=== PATIENT | male | born 1960 | race Caucasian/White ===

== ENCOUNTER 2020-07-10 10:47 | Outpatient (REF) | payer BC, SELFPAY ==
[2020-07-10 13:33] LABS: MANUAL DIFF FLAG NO
[2020-07-10 13:45] LABS: Basophils Percent Auto 0.5 % (0-2); Eosinophils Absolute Auto 0.1 X10*3/uL (0.0-0.4); Eosinophils Percent Auto 1.5 % (0-4); Hematocrit 35.2 % (42-52); Hemoglobin 10.1 g/dl (14.0-18.0); Imm Gran Abs Auto 0.02 X10*3/uL (0.00-0.03); Imm Gran Pct Auto 0.3 % (0.0-0.4); Lymphocytes Absolute Auto 1.8 X10*3/uL (1.2-4.9); Lymphocytes Percent Auto 31.3 % (20-40); Mean Corpuscular HGB Conc 28.7 g/dl (31.0-36.0); Mean Corpuscular Hemoglobin 19.8 pg (27.0-33.0); Mean Platelet Volume 10.2 fL (9.4-12.4); Monocytes Absolute Auto 0.7 X10*3/uL (0.1-1.2); Monocytes Percent Auto 11.1 % (2-11); Neutrophils Absolute Auto 3.2 X10*3/uL (2.0-8.3); Neutrophils Percent Auto 55.3 % (45-73); Platelet Count 264 X10*3/uL (160-400); White Blood Count 5.9 X10*3/uL (4.8-10.8)
[2020-07-10 14:03] LABS: Alanine Aminotransferase 36 U/L (0-40); Albumin Level 4.3 g/dL (3.5-5.0); Alkaline Phosphatase 56 U/L (39-117); Anion Gap 12 (12-20); Aspartate Amino Transferase 22 U/L (5-37); Bilirubin Total 0.6 mg/dL (0.0-1.0); Blood Urea Nitrogen 22 mg/dL (9-16); Calcium 8.8 mg/dL (8.4-10.2); Carbon Dioxide 24 mmol/L (22-29); Chloride 107 mmol/L (96-108); Estimated Glomerular Filt Rate > 60; Glucose Random 111 mg/dL (60-115); Potassium 4.3 mmol/l (3.3-5.1); Sodium 139 mmol/L (135-145); Total Protein 7.4 g/dL (6.5-8.0)
[2020-07-10 14:17] LABS: B Type Natriuretic Peptide 564 pg/mL (<100); Troponin-I High Sensitivity 35.5 ng/L (<3.5-35.0)
[2020-07-10 14:26] LABS: Free T4 (Free Thyroxine) 0.98 ng/dL (0.71-1.85); Thyroid Stimulating Hormone 1.85 uIU/mL (0.32-4.0)
== END 2020-07-10 10:48 | disposition home or self-care (01) ==
LOC: HO.10HDL 10:47
PROVIDERS: PCP Internal Medicine; Visit Provider Internal Medicine
DX: I25.10 Atherosclerotic heart disease of native coronary artery without angina pectoris (principal); I42.9 Cardiomyopathy, unspecified
CPT/HCPCS: 36415; 80053; 83880; 84439; 84443; 84484; 85025

== ENCOUNTER 2020-08-15 09:48 | Day surgery (SDC) | payer BC, SELFPAY ==
[2020-08-09 14:56] VITALS: BMI 30.1
--- NOTE | 2020-08-09 15:14 | P.CONAN_ITS ---
Documented by User: Talia Multani 08/09/20 15:18 HPI - Anesthesia Eval Consult details Narrative: 60yo M for Upper Endoscopy [facility] Past Medical History Medical History (Updated 08/15/20 @ 10:47 by Sona Chamorro) Anemia Arrhythmia CAD (coronary artery disease) Elevated cholesterol GERD (gastroesophageal reflux disease) Hx of cardiomyopathy On anticoagulant therapy On beta angela at home Orthostatic hypotension Surgical History Surgical History H/O colonoscopy Hx of cardiac catheterization Social History Social History Alcohol intake: current Alcohol intake frequency: a few times a month Smoking Status: Former smoker Tobacco Type: Cigarette Smoked in Last 30 Days: No Smoking Quit Date: 1990 Use of substances other than those prescribed or required for medical reasons: No Advance Directives Information Provided: No Recently lost weight without trying: No Meds Allergies Allergy/AdvReac Type Severity Reaction Status Date / Time No Known Allergies Allergy Verified 08/15/20 10:20 [No Known Allergies*] Home Medications Medication Instructions Recorded Confirmed Type apixaban [Eliquis] 1 tab PO BID 08/09/20 08/09/20 History aspirin 1 tab PO DAILY 08/09/20 08/09/20 History atorvastatin 1 tab PO DAILY 08/09/20 08/09/20 History ferrous sulfate [iron] 325 mg PO DAILY 08/09/20 08/09/20 History lisinopril 1 tab PO DAILY 08/09/20 08/09/20 History metoprolol succinate 12.5 mg PO QPM 08/09/20 08/09/20 History metoprolol succinate 25 mg PO QAM 08/09/20 08/09/20 History Exam Exam Date and Time: August 09, 2020 1514 Height,Weight and Vital Signs: Height 5 ft 10 in Weight 95.254 kg Pertinent Lab Results Pertinent Lab Results: Laboratory Tests 07/10/20 07/10/20 10:50 10:50 WBC 5.9 Hgb 10.1 L Hct 35.2 L Plt Count 264 Sodium 139 Potassium 4.3 Chloride 107 Carbon Dioxide 24 BUN 22 H Creatinine 1.19 Narrative Narrative: ECHO 10/2019: EF 35-40%, infolat wall and mid inferior segment are akinetic, mild calc of aortic valve Cardiac cath 07/2019: 50% stenosis in proximal LAD; 80% stenosis in ostial 1st diagonal. IFR across LAD no hemodynamically significant. Plan for med management. Assessment and Plan Assessment Anesthesia Assessment: Chart Reviewed Documented by User: Sona Chamorro 08/15/20 10:47 [facility] Past Medical History Medical History (Updated 08/15/20 @ 10:47 by Sona Chamorro) Anemia Arrhythmia CAD (coronary artery disease) Elevated cholesterol GERD (gastroesophageal reflux disease) Hx of cardiomyopathy On anticoagulant therapy On beta angela at home Orthostatic hypotension Family History Family history of problems with anesthesia: No Surgical History Surgical History H/O colonoscopy Hx of cardiac catheterization History of Problems with Anesthesia: No Social History Social History Alcohol intake: current Alcohol intake frequency: a few times a month Smoking Status: Former smoker Tobacco Type: Cigarette Smoked in Last 30 Days: No Smoking Quit Date: 1990 Use of substances other than those prescribed or required for medical reasons: No Advance Directives Information Provided: No Recently lost weight without trying: No Meds Allergies Allergy/AdvReac Type Severity Reaction Status Date / Time No Known Allergies Allergy Verified 08/15/20 10:20 [No Known Allergies*] Home Medications Medication Instructions Recorded Confirmed Type apixaban [Eliquis] 1 tab PO BID 08/09/20 08/09/20 History aspirin 1 tab PO DAILY 08/09/20 08/09/20 History atorvastatin 1 tab PO DAILY 08/09/20 08/09/20 History ferrous sulfate [iron] 325 mg PO DAILY 08/09/20 08/09/20 History lisinopril 1 tab PO DAILY 08/09/20 08/09/20 History metoprolol succinate 12.5 mg PO QPM 08/09/20 08/09/20 History metoprolol succinate 25 mg PO QAM 08/09/20 08/09/20 History Exam Height,Weight and Vital Signs: Vital Signs Temp Pulse Resp BP Pulse Ox 08/15/20 10:21 96.9 F 48 L 16 118/75 99 Airway Mallampati Class: II TM Dist: >3cm Neck ROM: Full Loose/Missing/Broken Teeth: No (Several caps) Heart: RRR Lungs: CTAB Assessment and Plan Assessment Anesthesia Assessment: Anesthesia Plan Discussed and Chart Reviewed Final Anesthetic Review NPO: Yes ASA Class: III Final Preanesthetic Review: No Changes in Pt Med Stat, Meds/Allgs Chart Reviewed, Consent Obtained/Reviewed and Anes Risks/Benef Reviewed Patient Risk: Intermediate Procedure Risk: Low Assessment/Block/Sedation in SS: Assess/Block/Sedation-SS Anesthetic Plan Anesthetic Plan: MAC: Disposition: Standard PACU
[2020-08-15 10:21] VITALS: BP 118/75; PULSE 48; RESP 16; TEMP 36.1; O2SAT 99
--- NOTE | 2020-08-15 10:56 | MHC.SHP ---
Pre-Procedural Eval Section A The patient is an INPATIENT: No Changes since office visit: Yes Cold of Flu in the past 2 weeks, Yes New Medical Problems, Yes Changes in Medication and Yes Patient answered all questions The History & Physical has been completed within 30 days and I have reviewed it.: Yes Section B Chief Complaint: reflux disease,iron def Allergies: Allergies Allergy/AdvReac Type Severity Reaction Status Date / Time No Known Allergies Allergy Verified 08/15/20 10:20 [No Known Allergies*] Plan I have reviewed the history and physical and performed a pertinent physical examination on my patient. No changes have occurred unless specified.
[2020-08-15 11:12] VITALS: BP 105/58; PULSE 55; RESP 16; TEMP 36.2; O2SAT 98
--- NOTE | 2020-08-15 11:20 | PM.OP ---
Brief Operative Note Date of Service: 08/15/20 Pre-op diagnosis: gerd, iron def anemia Post-op diagnosis: same (gastritis) Procedure: egd Surgeon: Valentin Styles Anesthesia: MAC Estimated blood loss (mL): 5 Pathology: other (duodenal,antral, egj biopsies) Condition: stable Disposition: PACU
[2020-08-15 11:27] VITALS: BP 98/59; PULSE 49; RESP 16; O2SAT 98
[2020-08-15 11:41] VITALS: BP 109/69; PULSE 48; RESP 16; TEMP 36.2; O2SAT 98
--- NOTE | 2020-08-15 12:10 | HO.POSTANES ---
Post Anesthesia Evaluation Post Anesthesia Evaluation Vital Signs: Vital Signs Temp Pulse Resp BP Pulse Ox 08/15/20 11:41 97.1 F 48 L 16 109/69 98 08/15/20 11:27 49 L 16 98/59 L 98 08/15/20 11:12 97.1 F 55 16 105/58 L 98 08/15/20 10:21 96.9 F 48 L 16 118/75 99 Anesthesia: Monitored Mental Status: Awake Pain Control: Satisfactory Nausea/Vomiting: None Hydration: Adequate Anesthesia-Related Issues: No Anes. Related Issues
--- NOTE | 2020-08-15 12:36 | OP_ITS ---
SURGEON: Valentin Styles MD INDICATIONS: Iron deficiency anemia and gastroesophageal reflux disease. PREOPERATIVE DIAGNOSIS: POSTOPERATIVE DIAGNOSIS: PROCEDURE PERFORMED: Upper endoscopy with biopsy. ESTIMATED BLOOD LOSS: COMPLICATIONS: ANESTHESIA: Monitored anesthesia care. ASSISTANTS: SPECIMENS: DESCRIPTION OF PROCEDURE: History and physical performed. The risks and benefits of the procedure were explained to the patient. Informed consent was obtained. The patient was placed in a left lateral decubitus position. The Olympus video gastroscope was introduced into the esophagus, stomach, and duodenum. Examination was performed. The scope was removed. He tolerated the procedure well and was taken to recovery room in stable condition. FINDINGS: Esophagus: The esophagus showed an irregular EG junction. This was biopsied. There was no esophagitis. Stomach: The stomach showed focal areas of erythema consistent with mild gastritis. Biopsies were obtained from the antrum. Duodenum: The bulb and second portion were normal. Biopsies were obtained from the second portion. IMPRESSION: Gastritis. RECOMMENDATION: Followup the biopsy results. MD COLBY Cheung/MODL / [id number]
== END 2020-08-15 12:15 | disposition home or self-care (01) ==
PROVIDERS: PCP Internal Medicine; Visit Provider Internal Medicine Gastroenterology
PROC: 0DJ08ZZ Inspection of Upper Intestinal Tract, Via Natural or Artificial Opening Endoscopic (ICD-10-PCS; CPT 43235; principal; 2020-08-15 11:20)
DX: K21.9 Gastro-esophageal reflux disease without esophagitis (principal); D50.9 Iron deficiency anemia, unspecified; K29.50 Unspecified chronic gastritis without bleeding; I48.91 Unspecified atrial fibrillation; Z79.01 Long term (current) use of anticoagulants; Z79.82 Long term (current) use of aspirin; Z79.899 Other long term (current) drug therapy; Z87.891 Personal history of nicotine dependence
CPT/HCPCS: 43239; 88305; 88342

== ENCOUNTER → 2020-08-30 14:51 | Outpatient (REF) | payer BC, SELFPAY ==
--- NOTE | 2020-08-30 15:00 | CA_ITS ---
Transthoracic Echocardiogram Patient (Last, First, Middle): Demetrius Montero, Gender: Male Date of : 1960 Age: 60 Procedure Date: 08/30/2020 Procedure Type: Transthoracic Echocardiogram Location: OP Height: 180.34 cm Weight: 99.79 kg BSA: 2.20 m2 Heart Rate: bpm BP: 125 / 78 mmHg Bank Courier: Referring MD: Serjio Taveras MD Symptoms: I42.9 CARDIOMYOPATHY Study Quality: Fair ECG Rhythm: Sinus Conclusions: - The left ventricular systolic function is moderately decreased. The visually estimated ejection fraction is between 35-40%. - Evidence suggests grade II (moderate) diastolic dysfunction. - The inferolateral wall, the basal inferior, and mid inferior segments are akinetic. - No obvious valvular pathology seen on this study. - The left atrium is severely dilated. Findings Left Ventricle Normal left ventricular cavity size. There is normal left ventricular wall thickness. The left ventricular systolic function is moderately decreased. The visually estimated ejection fraction is between 35-40%. The calculated ejection fraction is 40% by biplane method. There is evidence of regional wall motion abnormalities. E/E prime ratio is between 8 and 15 consistent with indeterminate filling pressures. Evidence suggests grade II (moderate) diastolic dysfunction. Wall Motion Rest Echo Findings The inferolateral wall, the basal inferior, and mid inferior segments are akinetic. Right Ventricle Normal right ventricular cavity size and systolic function. Atria The left atrium is severely dilated. The right atrium is mildly dilated. Aortic Valve There is a normal trileaflet aortic valve. There is mild calcification of the aortic valve. There is no aortic valve stenosis. There is no aortic valve regurgitation. Mitral Valve The mitral valve appears normal. There is trace mitral valve regurgitation. There is no mitral valve stenosis. Pulmonic Valve The pulmonic valve was not well visualized. Tricuspid Valve Normal tricuspid valve structure. There is trace tricuspid valve regurgitation. The pulmonary artery systolic pressure is normal. Great Vessels The aortic annulus, sinuses of valsalva, and asc aorta are normal in size. Venous The inferior vena cava is normal in size and collapses greater than 50% with inspiration. Pericardium/Pleural There is no evidence of pericardial effusion. Prior Study Comparison No significant change compared to prior study dated: 11/16/2019. Recommendations, Care & Conclusions No obvious valvular pathology seen on this study. Measurements 2D Linear Measurements IVSd: 1.05 0.6-0.9/0.6-1.0 cm LVIDd: 4.75 3.9-5.3/4.2-5.9 cm LVIDd Index: 2.16 2.4-3.2/2.2-3.1 cm/m2 LVIDs: 3.77 2.0-3.6 cm LVPWd: 1.07 0.7-1.1 cm Ao Root: 3.30 2.1-3.5 cm LA Diam: 4.20 2.7-3.8/3.0-4.0 cm LAIDs Index: 1.91 1.5-2.3 cm/m2 LV Mass: 225.75 67-162/88-224 g LV Mass Index: 102.62 43-95/49-115 g/m2 LVOT Diam: 2.10 3.0+(-)1.3 cm 2D Systolic Function EF 4C: 38.80 >55% EF 2C: 42.20 >55% EF BiP: 39.80 >55% Mitral Valve MV Pk E: 0.80 MV PK A: 0.27 MV Decel Time: 206.00 E/A: 3.00 E'Lateral: 8.22 E'Medial: 7.83 E/E' Med: 10.20 E/E' Lat: 9.70 PHT: 60.00 MVA PHT: 3.67 Decel Montgomery: 3.87 Aortic Valve AoV Pk Manuel: 1.13 AoV Mn Manuel: 0.76 AoV VTI: 0.29 AoV Pk Grad: 5.00 Aov Mn Grad: 3.00 JULIANNE Cont.VTI: 2.66 LVOT LVOT Pk Manuel: 1.02 LVOT Mn Manuel: 0.57 LVOT VTI: 0.22 LVOT Pk Grad: 4.00 LVOT Mn Grad: 2.00 LVOT Diam: 2.10 LVOT Area: 3.46 Diastolic Function MV Pk E: 0.80 MV Pk A: 0.27 E/A: 3.00 E'Medial: 7.83 E/E' Med: 10.20 E' Laterial: 8.22 E/E' Lat: 9.70 Tricuspid Valve TR Pk Manuel: 1.65 TR Pk Grad: 11.00 RA Press: 3.00 RVSP: 14.00 Great Vessels Aorta Ao Root-2D: 3.30 2.0-3.7 cm Ao Asc: 3.10 2.1-3.4 cm Pulmonary Valve PV Pk Manuel: 0.81 Peak PV Grad: 3.00 Updated in Other Vendor System with Status of Final Serjio Taveras MD electronically signed on 09/02/2020 12:32:16 PM with status of Final
== END ==
LOC: HO.CARD 14:51
PROVIDERS: PCP Internal Medicine; Visit Provider Internal Medicine
DX: I42.9 Cardiomyopathy, unspecified (principal)
CPT/HCPCS: 93306

== ENCOUNTER → 2020-09-20 14:52 | Outpatient (BNVA) | payer BC, SELFPAY | PROVIDERS: PCP Internal Medicine; Visit Provider Internal Medicine | DX: I48.0 Paroxysmal atrial fibrillation (principal); I42.9 Cardiomyopathy, unspecified; I25.10 Atherosclerotic heart disease of native coronary artery without angina pectoris | CPT/HCPCS: 93005 ==

== ENCOUNTER 2020-10-09 15:47 | Outpatient (REF) | payer BC, SELFPAY ==
[2020-10-09 16:34] LABS: Basophils Percent Auto 0.5 % (0-2); Hemoglobin 13.8 g/dl (14.0-18.0); Imm Gran Abs Auto 0.01 X10*3/uL (0.00-0.03); Imm Gran Pct Auto 0.2 % (0.0-0.4); MANUAL DIFF FLAG SCAN; SCAN SMEAR FLAG 1
[2020-10-09 16:36] LABS: Eosinophils Absolute Auto 0.1 X10*3/uL (0.0-0.4); Eosinophils Percent Auto 0.8 % (0-4); Hematocrit 42.5 % (42-52); Lymphocytes Absolute Auto 1.8 X10*3/uL (1.2-4.9); Lymphocytes Percent Auto 28.1 % (20-40); Mean Corpuscular HGB Conc 32.5 g/dl (31.0-36.0); Mean Corpuscular Hemoglobin 25.8 pg (27.0-33.0); Mean Corpuscular Volume 79.6 fL (80-98); Mean Platelet Volume 10.2 fL (9.4-12.4); Monocytes Absolute Auto 0.5 X10*3/uL (0.1-1.2); Monocytes Percent Auto 7.7 % (2-11); Neutrophils Absolute Auto 3.9 X10*3/uL (2.0-8.3); Neutrophils Percent Auto 62.7 % (45-73); PLT ABN DIST 1; Platelet Count 138 X10*3/uL (160-400); Red Blood Count 5.34 X10*6/uL (4.60-5.80); Red Cell Distribution Width 22.7 % (11.0-16.0); White Blood Count 6.3 X10*3/uL (4.8-10.8)
[2020-10-09 16:53] LABS: SLIDE REVIEW VERIFIED
[2020-10-09 17:26] LABS: Alanine Aminotransferase 52 U/L (0-40); Albumin Level 4.2 g/dL (3.5-5.0); Alkaline Phosphatase 56 U/L (39-117); Anion Gap 12 (12-20); Aspartate Amino Transferase 32 U/L (5-37); Bilirubin Total 0.6 mg/dL (0.0-1.0); Blood Urea Nitrogen 26 mg/dL (9-16); Carbon Dioxide 26 mmol/L (22-29); Chloride 107 mmol/L (96-108); Estimated Glomerular Filt Rate 51; Glucose Random 96 mg/dL (60-115); Iron 96 mcg/dL (45-160); Percent Iron Saturation 21 % (15-50); Potassium 4.3 mmol/L (3.3-5.1); Sodium 141 mmol/L (135-145); Total Iron Binding Capacity 464 mcg/dL (228-428); Unsaturated Iron Binding 368 ug/dL
== END 2020-10-09 15:48 | disposition home or self-care (01) ==
LOC: HO.LAB 15:47
PROVIDERS: PCP Internal Medicine; Visit Provider Internal Medicine
DX: I10 Essential (primary) hypertension (principal); D64.9 Anemia, unspecified; I48.0 Paroxysmal atrial fibrillation; K64.9 Unspecified hemorrhoids
CPT/HCPCS: 36415; 80053; 83540; 85025

== ENCOUNTER → 2020-11-01 15:50 | Outpatient (BNVA) | payer BC, SELFPAY | PROVIDERS: PCP Internal Medicine; Visit Provider Surgery | DX: K64.9 Unspecified hemorrhoids (principal); Z79.01 Long term (current) use of anticoagulants; Z79.899 Other long term (current) drug therapy; Z87.891 Personal history of nicotine dependence | CPT/HCPCS: 99204; 46600 ==

== ENCOUNTER 2021-12-11 14:57 | Outpatient (REF) | payer BC, SELFPAY ==
--- NOTE | ~2021-12-11 | XR_ITS ---
EXAMINATION: XR SHOULDER, RIGHT CLINICAL INFORMATION: Pain. COMPARISON: None TECHNIQUE: AP external rotation, Grashey, scapular Y, and axillary views of the right shoulder. FINDINGS: There is no evidence of acute fracture or dislocation of the right shoulder. There is mild spurring about the glenohumeral joint. No significant degenerative change of the acromioclavicular joint is seen. No widening of the coracoclavicular space is noted. There are secondary ossification centers seen about the distal acromion. There is a question of some erosive change involving the greater tuberosity. XR/XR shoulder RT min 2V IMPRESSION: Mild degenerative change. No evidence of acute fracture, dislocation, or calcific tendinitis.
== END 2021-12-11 14:58 | disposition home or self-care (01) ==
LOC: HO.HMGCX 14:57
PROVIDERS: PCP Internal Medicine; Visit Provider Internal Medicine
DX: M25.511 Pain in right shoulder (principal)
CPT/HCPCS: 73030

== ENCOUNTER 2021-12-15 09:32 | Outpatient (REF) | payer BC, SELFPAY ==
[2021-12-15 11:11] LABS: MANUAL DIFF FLAG NO
[2021-12-15 11:13] LABS: Basophils Percent Auto 0.9 % (0-2); Eosinophils Absolute Auto 0.2 X10*3/uL (0.0-0.4); Eosinophils Percent Auto 3.3 % (0-4); Hematocrit 40.9 % (42.0-52.0); Hemoglobin 13.3 g/dl (14.0-18.0); Imm Gran Abs Auto 0.01 X10*3/uL (0.00-0.03); Imm Gran Pct Auto 0.2 % (0.0-0.4); Lymphocytes Absolute Auto 1.4 X10*3/uL (1.2-4.9); Lymphocytes Percent Auto 31.8 % (20-40); Mean Corpuscular HGB Conc 32.5 g/dl (31.0-36.0); Mean Corpuscular Hemoglobin 28.6 pg (27.0-33.0); Mean Platelet Volume 10.3 fL (9.4-12.4); Monocytes Absolute Auto 0.4 X10*3/uL (0.1-1.2); Monocytes Percent Auto 9.8 % (2-11); Neutrophils Absolute Auto 2.4 x10*3/uL (2.0-8.3); Platelet Count 161 X10*3/uL (160-400); Red Blood Count 4.65 X10*6/uL (4.60-5.80); Red Cell Distribution Width 17.2 % (11.0-16.0); White Blood Count 4.5 X10*3/uL (4.8-10.8)
[2021-12-15 11:39] LABS: Alanine Aminotransferase 46 U/L (0-40); Albumin Level 3.9 g/dL (3.5-5.0); Alkaline Phosphatase 59 U/L (39-117); Anion Gap 11 (12-20); Aspartate Amino Transferase 29 U/L (5-37); Bilirubin Total 0.6 mg/dL (0.0-1.0); Blood Urea Nitrogen 21 mg/dL (9-16); Calcium 9.3 mg/dL (8.4-10.2); Carbon Dioxide 24 mmol/L (22-29); Chloride 109 mmol/L (96-108); Cholesterol 122 mg/dL; Estimated Glomerular Filt Rate > 60; Glucose Fasting 132 mg/dL (60-99); HDL Cholesterol 43 mg/dL; LDL Cholesterol Calculated 69 mg/dl; Potassium 4.8 mmol/L (3.3-5.1); Sodium 139 mmol/L (135-145); Total Protein 6.9 g/dL (6.5-8.0); Triglycerides 52 mg/dL
[2021-12-15 12:00] LABS: Prostate Specific Antigen Scr 0.83 ng/mL (<0.05-4.0)
== END 2021-12-15 09:33 | disposition home or self-care (01) ==
LOC: HO.HMGCLDS 09:32
PROVIDERS: PCP Internal Medicine; Visit Provider Internal Medicine
DX: Z13.89 Encounter for screening for other disorder (principal)
CPT/HCPCS: 36415; 80053; 80061; 84153; 85025

== ENCOUNTER 2023-08-06 10:35 | Outpatient (REF) | payer BC, SELFPAY ==
[2023-08-06 11:17] LABS: MANUAL DIFF FLAG NO
[2023-08-06 12:16] LABS: Basophils Percent Auto 0.7 % (0-2); Eosinophils Absolute Auto 0.2 X10*3/uL (0.0-0.4); Eosinophils Percent Auto 2.7 % (0-4); Hematocrit 44.5 % (42.0-52.0); Hemoglobin 15.3 g/dl (14.0-18.0); Imm Gran Abs Auto 0.01 X10*3/uL (0.00-0.03); Imm Gran Pct Auto 0.2 % (0.0-0.4); Lymphocytes Absolute Auto 1.9 X10*3/uL (1.2-4.9); Lymphocytes Percent Auto 32.8 % (20-40); Mean Corpuscular HGB Conc 34.4 g/dl (31.0-36.0); Mean Corpuscular Hemoglobin 30.6 pg (27.0-33.0); Mean Platelet Volume 9.7 fL (9.4-12.4); Monocytes Absolute Auto 0.6 X10*3/uL (0.1-1.2); Monocytes Percent Auto 9.8 % (2-11); Neutrophils Absolute Auto 3.1 x10*3/uL (2.0-8.3); Neutrophils Percent Auto 53.8 % (45-73); Platelet Count 160 X10*3/uL (160-400); Red Cell Distribution Width 12.6 % (11.0-16.0); White Blood Count 5.8 X10*3/uL (4.8-10.8)
[2023-08-06 12:46] LABS: Appearance Urine Clear; Color Urine Yellow; Glucose Urine UA Negative (Negative); Leukocyte Esterase Urine Negative (Negative); Nitrite Urine Negative (Negative); PH 5.5 (5.0-9.0); Urine Blood Negative (Negative); Urine Ketones Negative (Negative); Urine Protein Negative (Neg-Trace)
[2023-08-06 12:56] LABS: Alanine Aminotransferase 35 U/L (0-40); Albumin Level 4.4 g/dL (3.5-5.0); Alkaline Phosphatase 63 U/L (39-117); Anion Gap 13 (12-20); Aspartate Amino Transferase 26 U/L (5-37); Bilirubin Total 0.9 mg/dL (0.0-1.0); Blood Urea Nitrogen 20 mg/dL (9-16); Calcium 10.1 mg/dL (8.4-10.2); Carbon Dioxide 25 mmol/L (22-29); Chloride 107 mmol/L (96-108); Cholesterol 122 mg/dL (<200); Estimated Glomerular Filt Rate 55; Glucose Fasting 133 mg/dL (60-99); HDL Cholesterol 40 mg/dL (>40); LDL Cholesterol Calculated 66 mg/dL (<100); Potassium 4.6 mmol/L (3.3-5.1); Sodium 140 mmol/L (135-145); Total Protein 7.7 g/dL (6.5-8.0); Triglycerides 83 mg/dL (<150)
[2023-08-06 13:05] LABS: Prostate Specific Antigen Scr 0.94 ng/mL (<0.05-4.0)
[2023-08-06 13:13] LABS: Thyroid Stimulating Hormone 1.75 uIU/mL (0.32-4.0)
== END 2023-08-06 10:36 | disposition home or self-care (01) ==
LOC: HO.LAB 10:35
PROVIDERS: PCP Internal Medicine; Visit Provider Internal Medicine
DX: Z12.5 Encounter for screening for malignant neoplasm of prostate (principal); I48.0 Paroxysmal atrial fibrillation; I10 Essential (primary) hypertension; E78.00 Pure hypercholesterolemia, unspecified; N40.0 Benign prostatic hyperplasia without lower urinary tract symptoms; I42.9 Cardiomyopathy, unspecified; R63.5 Abnormal weight gain
CPT/HCPCS: 36415; 80053; 80061; 81003; 84153; 84443; 85025

== ENCOUNTER 2024-02-04 10:43 | Outpatient (REF) | payer BC, SELFPAY ==
[2024-02-04 11:04] LABS: MANUAL DIFF FLAG NO
[2024-02-04 11:32] LABS: Basophils Percent Auto 0.6 % (0-2); Eosinophils Absolute Auto 0.2 X10*3/uL (0.0-0.4); Hematocrit 43.2 % (42.0-52.0); Hemoglobin 15.1 g/dl (14.0-18.0); Imm Gran Abs Auto 0.01 X10*3/uL (0.00-0.03); Imm Gran Pct Auto 0.2 % (0.0-0.4); Lymphocytes Absolute Auto 1.6 X10*3/uL (1.2-4.9); Lymphocytes Percent Auto 33.3 % (20-40); Mean Corpuscular Hemoglobin 31.2 pg (27.0-33.0); Mean Corpuscular Volume 89.3 fL (80.0-98.0); Monocytes Absolute Auto 0.5 X10*3/uL (0.1-1.2); Monocytes Percent Auto 9.5 % (2-11); Neutrophils Absolute Auto 2.6 x10*3/uL (2.0-8.3); Neutrophils Percent Auto 53.4 % (45-73); Platelet Count 138 X10*3/uL (160-400); Red Blood Count 4.84 X10*6/uL (4.60-5.80); Red Cell Distribution Width 12.9 % (11.0-16.0); White Blood Count 4.9 X10*3/uL (4.8-10.8)
[2024-02-04 11:47] LABS: Estimated Average Glucose 128 mg/dL; Hemoglobin A1c % 6.1 % (<6.0)
[2024-02-04 12:18] LABS: Alanine Aminotransferase 55 U/L (0-40); Albumin Level 4.5 g/dL (3.5-5.0); Alkaline Phosphatase 62 U/L (39-117); Anion Gap 12 (12-20); Aspartate Amino Transferase 28 U/L (5-37); Bilirubin Total 0.9 mg/dL (0.0-1.0); Blood Urea Nitrogen 23 mg/dL (9-16); Calcium 10.2 mg/dL (8.4-10.2); Carbon Dioxide 24 mmol/L (22-29); Chloride 109 mmol/L (96-108); Estimated Glomerular Filt Rate > 60; Glucose Random 123 mg/dL (60-115); Potassium 4.8 mmol/L (3.3-5.1); Sodium 140 mmol/L (135-145); Total Protein 7.4 g/dL (6.5-8.0)
[2024-02-04 12:20] LABS: Creatinine Urine 44.07 mg/dL; Microalbumin Urine < 5.0 mg/L
== END 2024-02-04 10:44 | disposition home or self-care (01) ==
LOC: HO.LAB 10:43
PROVIDERS: PCP Internal Medicine; Visit Provider Internal Medicine
DX: I42.9 Cardiomyopathy, unspecified (principal); E11.9 Type 2 diabetes mellitus without complications
CPT/HCPCS: 36415; 80053; 82043; 82570; 83036; 85025

== ENCOUNTER 2024-06-30 09:17 | Outpatient (REF) | payer BC, SELFPAY ==
[2024-06-30 10:19] LABS: MANUAL DIFF FLAG NO
[2024-06-30 10:30] LABS: Basophils Percent Auto 0.7 % (0-2); Eosinophils Absolute Auto 0.1 X10*3/uL (0.0-0.4); Eosinophils Percent Auto 2.3 % (0-4); Hematocrit 44.7 % (42.0-52.0); Hemoglobin 15.2 g/dl (14.0-18.0); Imm Gran Abs Auto 0.01 X10*3/uL (0.00-0.03); Imm Gran Pct Auto 0.2 % (0.0-0.4); Lymphocytes Absolute Auto 1.9 X10*3/uL (1.2-4.9); Lymphocytes Percent Auto 33.4 % (20-40); Mean Corpuscular Hemoglobin 30.9 pg (27.0-33.0); Mean Corpuscular Volume 90.9 fL (80.0-98.0); Monocytes Absolute Auto 0.5 X10*3/uL (0.1-1.2); Monocytes Percent Auto 9.2 % (2-11); Neutrophils Absolute Auto 3.1 x10*3/uL (2.0-8.3); Neutrophils Percent Auto 54.2 % (45-73); Platelet Count 154 X10*3/uL (160-400); Red Blood Count 4.92 X10*6/uL (4.60-5.80); Red Cell Distribution Width 13.2 % (11.0-16.0); White Blood Count 5.6 X10*3/uL (4.8-10.8)
[2024-06-30 11:17] LABS: Alanine Aminotransferase 58 U/L (0-40); Albumin Level 4.4 g/dL (3.5-5.0); Alkaline Phosphatase 54 U/L (39-117); Anion Gap 12 (12-20); Aspartate Amino Transferase 33 U/L (5-37); Blood Urea Nitrogen 22 mg/dL (9-16); Carbon Dioxide 27 mmol/L (22-29); Chloride 107 mmol/L (96-108); Estimated Glomerular Filt Rate > 60; Glucose Fasting 128 mg/dL (60-99); Potassium 4.6 mmol/L (3.3-5.1); Sodium 141 mmol/L (135-145); Total Protein 7.3 g/dL (6.5-8.0)
[2024-06-30 11:31] LABS: Prostate Specific Antigen Scr 0.97 ng/mL (<0.05-4.0)
[2024-06-30 13:23] LABS: Appearance Urine Clear; Color Urine Yellow; Glucose Urine UA Negative (Negative); Leukocyte Esterase Urine Negative (Negative); Nitrite Urine Negative (Negative); PH 5.5 (5.0-9.0); Urine Blood Negative (Negative); Urine Ketones Negative (Negative); Urine Protein Negative (Neg-Trace)
--- OUTSIDE RECORDS SUMMARY | 2024-07-06 17:01 | XMS_ITS ---
Author Organization [facility] Address [address] [place] [id number] Care Team Providers Care Wash Helper Name Role Phone Renato Barraza MD Primary Care Provider Unavaila Valentin Solis Jr [phone] REASON FOR VISIT screening Encounters Encounter Location Date Provider Diagnosis [facility] Outpatient [address], [place] [id number] 07/02/2024 Valentin Styles Jr PLAN OF TREATMENT No Information
--- OUTSIDE RECORDS SUMMARY | 2024-07-06 17:01 | XMS_ITS | Continuity of Care Document ---
Author Organization [facility] Address [address] [place] [address]- Care Team Providers Care Pool Technician Name Role Phone Renato Barraza MD Primary Care Physician [place] [facility] [place]24 [place] 06/30/24 [facility] [address] [place] [address]- Encounter Type: Triage Allergies, Adverse Reactions, Alerts Substance Criticality Severity Reaction Reaction Severity Status Contrast Dye hives Active Dotarem 1 Low criticality Mild Acti ve 1patient had no breathing issues but had hives on chest, back, and neck, after receiving dotarem forcardiac MRI. Medications aspirin 81 mg oral delayed release tablet 81 mg, 1, tablet, By Mouth, Daily, # 30 tablet, Refills 11, Tot. Refills 11, Maintenance, 08/22/22 8:51:00 AM EST, Route to Pharmacy Electronically, [facility]/pharmacy #[id number], Partial fill upon patient request if the prescription is for a schedule II opioid drug., 178, cm, 07/06/22 19:25:00 EST, Height, 90, kg, 07/06/22 19:25:00 EST, Dry Weight Start Date: 08/22/22 Status: Ordered Quantity: 30.0 Unit: tablet Repeat number: 12 atorvastatin 40 mg oral tablet 1 tablet, By Mouth, Daily, # 90 tablet, 2 Refills, Maintenance, 02/03/24 7:42:00 AM EDT, [facility] #[facility], 178, cm, 08/28/23 11:06:00 EST, Height, 90, kg, 07/06/22 19:25:00 EST, Dry Weight Start Date: 02/03/24 Status: Ordered Quantity: 90.0 Unit: tablet Repeat number: 3 CoQ10 By Mouth, Daily, 0 Refills, Maintenance, 09/27/22 10:32:00 AM EST, Partial fill upon patient request if the prescription is for a schedule II opioid drug. Start Date: 09/27/22 Status: Ordered Repeat number: 1 Eliquis 5 mg oral tablet 1 tablet, By Mouth, 2 times a day, for 90 days, # 180 tablet, 3 Refills, Physician Stop 05/23/25 10:27:00 AM EDT, 05/28/24 10:27:00 AM EDT, [facility], 178, cm, 08/28/23 11:06:00 EST, Height, 90, kg, 07/06/22 19:25:00 EST, Dry Weight Start Date: 05/28/24 Stop Date: 05/23/25 Status: Ordered Quantity: 180.0 Unit: tablet Repeat number: 4 ferrous sulfate 325 mg oral enteric coated tablet 325 mg, By Mouth, Daily, # 30 tablet, Refills 0, Tot. Refills 0, Maintenance, 06/02/21 1:10:00 PM EDT, Route to Pharmacy Electronically, [facility]/pharmacy #1230, Partial fill upon patient request if the prescription is for a schedule II opioid drug., 178, cm, 06/02/21 8:47:00 EDT, Height, 98, kg, 08/17/19 10:10:00 EST, Dry Weight Start Date: 06/02/21 Stop Date: 07/02/21 Status: Ordered Quantity: 30.0 Unit: tablet Repeat number: 1 magnesium aspartate See Instructions, One tab By Mouth Daily, 0 Refills, Maintenance, 05/19/23 9:37:00 AM EDT, Partial fill upon patient request if the prescription is for a schedule II opioid drug. Start Date: 05/19/23 Status: Ordered Repeat number: 1 sotalol 80 mg oral tablet 80 mg, 1, tablet, By Mouth, 2 times a day, # 180 tablet, Refills 3, Tot. Refills 3, Maintenance, 12/23/23 12:32:00 PM EDT, Route to Pharmacy Electronically, [facility] #[facility], Partial fillupon patient request if the prescription is for a schedule II opioid drug., 178, cm, 08/28/23 11:06:00 EST, Height, 90, kg, 07/06/22 19:25:00 EST, Dry Weight Start Date: 12/23/23 Stop Date: 12/17/24 Status: Ordered Quantity: 180.0 Unit: tablet Repeat number: 4 spironolactone 25 mg oral tablet See Instructions, TAKE ONE TABLET BY MOUTH EVERY DAY, # 90 tablet, Refills 3, Tot. Refills 3, Maintenance, 04/19/24 11:08:00 AM EDT, Instructions Replace Required Details, Route to Pharmacy Electronically, [facility], 178, cm, 08/28/23 11:06:00 EST, Height, 90, kg, 07/06/22 19:25:00 EST, Dry Weight Start Date: 04/19/24 Status: Ordered Quantity: 90.0 Unit: tablet Repeat number: 4 spironolactone 25 mg oral tablet 25 mg, 1, tablet, By Mouth, Daily, # 90 tablet, Refills 0, Tot. Refills 0, Maintenance, 02/17/24 12:39:00 PM EDT, Route to Pharmacy Electronically, [facility] #[facility], Partial fill upon patient request if the prescription is for a schedule II opioid drug., 178, cm, 08/28/23 11:06:00 EST, Height, 90, kg, 07/06/22 19:25:00 EST, Dry Weight Start Date: 02/17/24 Stop Date: 05/17/24 Status: Ordered Quantity: 90.0 Unit: tablet Repeat number: 1 valsartan 80 mg oral tablet 80 mg, 1, tablet, By Mouth, 2 times a day, # 180 tablet, Refills 11, Tot. Refills 11, Maintenance, 05/20/23 7:49:00 AM EDT, Route to Pharmacy Electronically, [facility], Dose increase, 178, cm, 05/19/23 9:34:00 EDT, Height, 90, kg, 07/06/22 19:25:00 EST, Dry Weight Start Date: 05/20/23 Status: Ordered Quantity: 180.0 Unit: tablet Repeat number: 12 Zinc See Instructions, One tab By Mouth Daily, 0 Refills, Maintenance, 05/19/23 9:36:00 AM EDT, Partial fill upon patient request if the prescription is for a schedule II opioid drug. Start Date: 05/19/23 Status: Ordered Repeat number: 1 Problem List Condition Confirmation Course Effective Dates Status H ealth Status Informant Alcohol abuse Confirmed Active Non-ischemic cardiomyopathy Confirmed Active Heart failure with reduced ejection fraction Confirmed Active Alcohol abuse, in remission Confirmed Active Paroxysmal atrial fibrillation with RVR Confirmed Active Social History Social History Type Response Smoking Status Former smoker, quit more than 30 days ago; Other: quit 43 years ago; entered on: 06/13/21 Sex Sex Representation Male (finding) Patient Care team information Care Team Personnel Name: Renato Barraza MD Position: [facility] Outreach Member Role: PCP Address: [address] [place] [address] [place] [address]- Telecom: Name: Bar Gomez RN Position: [facility] RN Member Role: Primary Care Nurse Name: Kady Zimmerman RN Position: [facility] RN Member Role: Primary Care Nurse Name: Nirali Dangelo RN Position: [facility] RN Member Role: Primary Care Nurse Care Team Related Persons Name: ABDIRASHID ELIZABETH Insurance Providers Guarantor name: VICENTE Health Plan Information #: 1 Payer: HMO BLUE IN NETWORK Member Number: NA Policy Number: NA Group Number: NA
--- OUTSIDE RECORDS SUMMARY | 2024-07-06 17:01 | XMS_ITS | Continuity of Care Document ---
Author Organization [facility] Address [address] [place] [address]- Care Team Providers Care Pipe Organ Builder Name Role Phone Renato Barraza MD Primary Care Physician Encounter [facility] [place] Date(s): 03/04/24 - 07/02/24 [facility] [address] [place] [address]- Attending Physician: Chin Gray MD Admitting Physician: Chin Gray MD Referring Physician: Renato Barraza MD Encounter Type: Pre-OutPatient One Time Allergies, Adverse Reactions, Alerts Substance Criticality Severity [...] 8:51:00 AM EST, Route to Pharmacy Electronically, [facility]/pharmacy #1230, Partial fill upon patient request if [...] 1:10:00 PM EDT, [facility], Partial fill upon patient request if [...] 12:32:00 PM EDT, Route to Pharmacy Electronically, [facility] #[facility], Partial fillupon patient request if [...] Replace Required Details, Route to Pharmacy Electronically, [facility] #435, 178, cm, 08/28/23 11:06:00 EST, Height, 90, kg, 07/06/22 19:25:00 EST, Dry Weight Start Date: 04/19/24 Status: Ordered Quantity: 90.0 Unit: tablet Repeat number: 4 spironolactone 25 mg oral tablet 25 mg, 1, tablet, By Mouth, Daily, # 90 tablet, Refills 0, Tot. Refills 0, Maintenance, 02/17/24 12:39:00 PM EDT, Route to Pharmacy Electronically, [facility] #435, Partial fill upon patient request [...] 7:49:00 AM EDT, Route to Pharmacy Electronically, [facility] #435, Dose increase, 178, cm, 05/19/23 [...] Team Personnel Name: Renato Barraza MD Position: [facility] Outreach Member Role: PCP Address: [address] [place] [address] [place] [address]- Telecom: Name: Bar Gomez RN Position: [facility] RN Member Role: Primary Care Nurse Name: Kady Zimmerman RN Position: [facility] RN Member Role: Primary Care Nurse Name: Nirali Dangelo RN Position: [facility] RN Member Role: Primary Care Nurse Care Team Related Persons Name: ABDIRASHID ELIZABETH Insurance Providers Guarantor name: VICENTE Health Plan Information #: 1 Payer: [employer] BLUE IN NETWORK Member Number: [id number] Policy Number: VICENTE Group Number: [id number] Health Plan Information #: 2 Payer: [employer] BL[employer] IN NETWORK Member Number: [id number] Policy Number: VICENTE Group Number: [id number]
--- OUTSIDE RECORDS SUMMARY | 2024-07-06 17:01 | XMS_ITS ---
Author Organization [facility] Address [address] [place] [address] Care Team Providers Care Pipe Smoker Machine Operator Name Role Phone Renato Barraza MD Primary Care Provider Valentin Luna Jr Unavailable ALLERGIES No Known Allergies REASON FOR VISIT Patient presents today for a recall colonoscopy MEDICATIONS Medication SIG (Take, Route, Frequency, Duration) Notes Start Date End Date Status Atorvastatin Calcium 40 MG TAKE 1 TABLET BY MOUTH EVERY DAY Oral for 90 Active Co Q 10 10 MG as directed Orally Active Eliquis 5 MG TAKE 1 TABLET BY DAVID TH TWICE A DAY Oral for 90 Active Iron 65 MG 1 tablet Orally Once a day for 30 day(s) Active [facility] Aspirin Adult Low Dose 81 MG TAKE 1 TABLET BY MOUTH EVERY DAY Oral for 30 Active Zinc 100 MG 1 tablet Orally Once a day for 30 day(s) Active MiraLax (colon prep) 17 GM/SCOOP mixed with Gatorade or Crystal Light Orally begin at 5:00 p.m. the day before the procedure for 1 day 06/02/2024 Active Sotalol HCl (AF) 80 MG TAKE 1 TABLET BY MOUTH TWICE DAILY Oral for 60 Active Valsartan 80 MG Oral for 60 Ac tive Spironolactone 25 MG TAKE ONE TABLET BY MOUTH EVERY DAY Oral for 60 Active IMMUNIZATIONS Vaccine Route Administration Date Status Comme nts Influenza Unknown 06/02/2024 Refused SOCIAL HISTORY Sex Assigned At : Social History Observation Description Sex Assigned At Unknown Alcohol Screen Question Answer Notes Did you have a drink containing alcohol in the p ast year? Yes How often did you have a dri nk containing alcohol in the past year? Never (0 point) Points 0 Interpretation Negative PROBLEMS Problem Type ICD Code Onset Dates Problem Status W/U Status Risk SNOMED Code Notes Problem FH: colon cancer (Z80.0) Active confirmed 952704803 VITAL SIGNS BMI 30.14 kg/m2 06/02/2024 Blood pressure systolic 000 mm Hg 06/02/20 24 Blood pressure diastolic 00 mm Hg 024 Height 69 in 06/02/2024 Temperature 97.7 degrees Fahrenheit 06/02/20 24 Weight 204 lb 2 oz lbs 06/02/2024 Encounters Encounter Location Date Provider Diagnosis [facility] [address] [place] [address] 06/02/2024 Valentin Styles Jr Colon cancer screening Z12.11 ; Encounter for other preprocedural examination Z01.818 ; FH: colon cancer Z80.0 and long-term (current) use of anticoagulants Z79.01 ASSESSMENTS Encounter Date Diagnosis Assessment Notes Treatment Notes Treatment Clinical Notes 06/02/2024 Colon cancer screening (ICD-10 - Z12.11) Colonoscopy material was printed 06/02/2024 Encounter for other preprocedural examination (ICD-10 - Z01.818) 06/02/2024 FH: colon cancer (ICD-10 - Z80.0) 06/02/2024 director long term care (current) use of anticoagulants (ICD-10 - Z79.01) PLAN OF TREATMENT Medication Medication Name Sig Start Date Stop Date Notes MiraLax (colon prep) 17 GM/SCOOP mixed with Gatorade or Crystal Light Orally begin at 5:00 p.m. the day before the procedure for 1 day 06/02/2024 Treatment Notes Assessment Notes Colon cancer screening Colonoscopy mater ial was printed Future Test Test Name Order Date COLONOSCOPY 06/02/2024 Next Appt Details Follow Up: 1 Year, Reason: Progress Notes * Examination Category Sub-Category Detail Notes General Examination GENERAL APPEARANCE: in no ac marie distress HEAD: normocephalic EYES: sclera non-icteric NECK/THYROID: no lymphadenopathy HEART: S1, S2 normal, no mu rmurs CHEST: normal shape and exp ansion LUNGS: clear to auscultatio n bilaterally ABDOMEN: soft, nontender, non distended, bowel sounds present, no organomegaly SKIN: anicteric EXTREMITIES: no clubbing, cyanosi s, or edema PSYCH: cognitive function i ntact ORAL CAVITY: mucosa moist
--- OUTSIDE RECORDS SUMMARY | 2024-07-06 17:02 | XMS_ITS | Patient Health Record ---
Author Organization [facility] Address [address] [place] [address] Care Team Providers Care Coal Pipeline Operator Name Role Phone Renato Barraza MD Primary Care Provider Valentin Luna Jr Unavailable ALLERGIES No Known Allergies REASON FOR REFERRAL Referring Provider First Name Renato Referring Provider Last Name Christi Referring Provider Speciality Internal M edicine Referred Organization [facility] Referred Provider Valentin Styles Jr Referred Address [address] [facility],[place], [place],[address], Referred Provider Specialty Gastroentero logy General Notes Merna Gann 024 01:44:42 PM EDT > requested an [facility] referral from Dr. Barraza's office for visit with Dr. Styles (said appt date was 05-11-2024) [phone] Referral Priority Routine MEDICATIONS Medication SIG (Take, Route, Frequency, Duration) Notes Start Date End Date Status Sotalol HCl (AF) 80 MG TAKE 1 TABLET BY MOUTH TWICE DAILY Oral for 60 Active Valsartan 80 MG Oral for 60 Ac tive Spironolactone 25 MG TAKE ONE TABLET BY MOUTH EVERY DAY Oral for 60 Active Zinc 100 MG 1 tablet Orally Once a day for 30 day(s) Active MiraLax (colon prep) 17 GM/SCOOP mixed with Gatorade or Crystal Light Orally begin at 5:00 p.m. the day before the procedure for 1 day 06/02/2024 Active Atorvastatin Calcium 40 MG TAKE 1 TABLET [...] MOUTH EVERY DAY Oral for 30 Active IMMUNIZATIONS Vaccine Route Administration Date Status Comme nts Influenza Unknown 11/26/2018 Refused Influenza Unknown 06/02/2024 Refused SOCIAL HISTORY Sex [...] W/U Status Risk SNOMED Code Notes Problem Colon cancer screening (Z12.11) Active confirmed 549640047 Problem [facility] (current) use of anticoagulants (Z79.01) Active confirmed Long-term current use of anticoagulant (635799595) Problem Encounter for other preprocedural examination (Z01.818) Active confirmed 919322962 Problem Iron deficiency anemia, unspecified iron deficiency anemia type (D50.9) Active confirmed 15125781 Problem FH: colon cancer (Z80.0) Active confirmed 740602215 Problem Gastroesophageal reflux disease, unspecified whether esophagitis present (K21.9) Active confirmed 565033851 VITAL SIGNS Temperature 97.7 degrees Fahrenheit 06/02/2024 Blood pressure diastolic 00 mm Hg 06/02/2024 Height 69 in 06/02/2024 Blood pressure systolic 000 mm Hg 06/02/2024 Weight 204 lb 2 oz lbs 06/02/2024 BMI 30.14 kg/m2 06/02/2024 Encounters Encounter Location Date Provider Diagnosis [facility] Outpatient [address] [place], [place] [id number] 07/02/2024 Valentin Styles Jr [facility] [address] [place] [address] 06/02/2024 Valentin Styles Jr Colon cancer screening Z12.11 ; Encounter for other preprocedural examination Z01.818 ; FH: colon cancer Z80.0 and [facility] (current) use of anticoagulants Z79.01 ASSESSMENTS Encounter Date Diagnosis Assessment Notes Treatment Notes Treatment Clinical Notes 06/02/2024 Colon cancer screening (ICD-10 - Z12.11) Colonoscopy material was printed 06/02/2024 Encounter for other preprocedural examination (ICD-10 - Z01.818) 06/02/2024 FH: colon cancer (ICD-10 - Z80.0) 06/02/2024 [facility] (current) use of anticoagulants (ICD-10 - Z79.01) PLAN OF TREATMENT Future Test Test Name Order Date COLONOSCOPY 05/13/2013 COLONOSCOPY 11/26/2018 UPPER GI ENDOSCOPY 08/03/2020 COLONOSCOPY 06/02/2024 Insurance Providers Payer Name Payer Address Payer Phone Subscriber Number Group Number Insured Name Patient Relationship to Insured Coverage Start Date Coverage End Date [facility] [employer] [facility] [address] [place] [address] [id number] ELIZABETH Self - patient is the insured MEDICAL (GENERAL) HISTORY Medical History History ICD Code colonoscopy 03/10/19 normal, prior history of adenomatous colon polyps, followup Nonischemic cardiomyopathy, with history of ventricular tachycardia Atrial fibrillation Hyperlipidemia Hypertension Surgical History Surgery Date(Month/Year) Pacemaker/defibrillator placement 06/17
== END 2024-06-30 09:18 | disposition home or self-care (01) ==
LOC: HO.HMGCLDS 09:17
PROVIDERS: PCP Internal Medicine; Visit Provider Internal Medicine
DX: I10 Essential (primary) hypertension (principal); E78.00 Pure hypercholesterolemia, unspecified; Z12.5 Encounter for screening for malignant neoplasm of prostate
CPT/HCPCS: 36415; 80053; 81003; 84153; 85025

== ENCOUNTER 2024-07-02 09:22 | Day surgery (SDC) | payer BC, SELFPAY ==
[2024-06-30 15:48] VITALS: BMI 30.1
--- NOTE | 2024-07-01 09:38 | P.CONAN_ITS ---
Documented by User: Talia Multani NP 07/01/24 09:43 HPI - Anesthesia Eval Consult details Narrative: 63yo M for Colonoscopy Follows [facility] for NICMP - ICD implant 2020. Stable at 08/2023 office visit with decrease ETOH and regular gym. Eliquis for afib PMFSH Active Problems Active Problems: All Active Problems Anticoagulant long-term use (Acute) Bleeding hemorrhoids (Acute) Atherosclerotic cardiovascular disease (Acute) Cardiomyopathy (Acute) PAF (paroxysmal atrial fibrillation) (Acute) Orthostatic hypotension (Acute) Past Medical History Medical History HTN (hypertension) Hx of ventricular tachycardia Non-ischemic cardiomyopathy Anticoagulant long-term use Bleeding hemorrhoids Atherosclerotic cardiovascular disease Cardiomyopathy PAF (paroxysmal atrial fibrillation) Orthostatic hypotension Anemia GERD (gastroesophageal reflux disease) Hx of cardiomyopathy On beta angela at home On anticoagulant therapy Elevated cholesterol Arrhythmia CAD (coronary artery disease) Family History Family history of problems with anesthesia: No Surgical History Surgical History History of implantable cardioverter-defibrillator (ICD) placement (06/04/21) Hx of cardiac catheterization H/O colonoscopy History of Problems with Anesthesia: No Social History Social History Are you a primary day care home provider to a significant other at home: No Do you presently have visiting nurse or other home services: No Alcohol intake: current Alcohol intake frequency: former alcohol drinker Patient Tobacco Use Status: Former Tobacco user Meds Allergies Allergy/AdvReac Type Severity Reaction Status Date / Time gadoterate meglumine Allergy Hives Verified 07/02/24 09:34 [From Dotarem] Iodinated Contrast Media Allergy Hives Verified 07/02/24 09:34 [Contrast Dye] Home Medications ?Medication ?Instructions ?Recorded ?Confirmed ?Last Taken ?Type ferrous sulfate 325 mg (65 mg 325 mg PO DAILY 08/09/20 06/30/24 Unknown History iron) tablet (iron) co A85-xhok oil-omega 3-E 10 mg PO DAILY 06/30/24 06/30/24 Unknown History sotalol 80 mg tablet (Sotalol AF) 80 mg PO BID 06/30/24 06/30/24 07/02/24 History spironolactone 25 mg tablet 25 mg PO DAILY 06/30/24 06/30/24 Unknown History valsartan 80 mg tablet 80 mg PO BID 06/30/24 06/30/24 Unknown History zinc 100 mg tablet 100 mg PO DAILY 06/30/24 06/30/24 Unknown History Exam Height,Weight and Vital Signs: Height 5 ft 9 in Weight 92.59 kg Pertinent Lab Results Pertinent Lab Results: Laboratory Tests 06/30/24 09:26 WBC 5.6 Hgb 15.2 Hct 44.7 Plt Count 154 L Sodium 141 Potassium 4.6 Chloride 107 Carbon Dioxide 27 BUN 22 H Creatinine 1.19 Narrative Narrative: 05/2024 ICD interrogation on chart. [facility] EKG 2022 [id number] Ventricular Rate: 79 BPM Atrial Rate: 79 BPM P-R Interval: 304 ms QRS Duration: 98 ms Q-T Interval: 412 ms QTC Calculation(Bazett): 472 ms P [place]: 16 degrees R [place]: -24 degrees T [place]: 44 degrees Atrial-paced rhythm with p rolonged AV conduction Abnormal ECG When compared with ECG of 06-JUL-2022 18:44, Nonspecific T wave abnormality, improved in Lateral leads Confirmed by LUX LEWIS ([id number]) on 09/27/2022 12:06:34 PM ECHO 2021 Summary The left ventricular size is normal. Left ventricular wall thickness is normal. The LV systolic function is moderately reduced . The left ventricular ejection fraction is 35-40 %. There is mild to moderate global hypokinesis of the left ventricle. The inferolateral wall appears severely hypo to akinetic. Normal diastolic function. Trileaflet aortic valve. Focal calcification. There is no aortic stenosis. There is no aortic regurgitation. The right ventricle is normal in size and function. A pacer/ICD wire is seen in the right ventricle. There is no pericardial effusion. Assessment and Plan Assessment Anesthesia Assessment: Chart Reviewed Final Anesthetic Review Family History of Problems with Anesthesia: No History of Problems with Anesthesia: No Documented by User: Skylar East MD 07/02/24 10:05 [facility] Past Medical History Medical History HTN (hypertension) Hx of ventricular tachycardia Non-ischemic cardiomyopathy Anticoagulant long-term use Bleeding hemorrhoids Atherosclerotic cardiovascular disease Cardiomyopathy PAF (paroxysmal atrial fibrillation) Orthostatic hypotension Anemia GERD (gastroesophageal reflux disease) Hx of cardiomyopathy On beta angela at home On anticoagulant therapy Elevated cholesterol Arrhythmia CAD (coronary artery disease) Surgical History Surgical History History of implantable cardioverter-defibrillator (ICD) placement (06/04/21) Hx of cardiac catheterization H/O colonoscopy Social History Social History Are you a primary day care home provider to a significant other at home: No Do you presently have visiting nurse or other home services: No Alcohol intake: current Alcohol intake frequency: former alcohol drinker Patient Tobacco Use Status: Former Tobacco user Meds Allergies Allergy/AdvReac Type Severity Reaction Status Date / Time gadoterate meglumine Allergy Hives Verified 07/02/24 09:34 [From Dotarem] Iodinated Contrast Media Allergy Hives Verified 07/02/24 09:34 [Contrast Dye] Home Medications ?Medication ?Instructions ?Recorded ?Confirmed ?Last Taken ?Type ferrous sulfate 325 mg (65 mg 325 mg PO DAILY 08/09/20 06/30/24 Unknown History iron) tablet (iron) co I66-epmg oil-omega 3-E 10 mg PO DAILY 06/30/24 06/30/24 Unknown History sotalol 80 mg tablet (Sotalol AF) 80 mg PO BID 06/30/24 06/30/24 07/02/24 History spironolactone 25 mg tablet 25 mg PO DAILY 06/30/24 06/30/24 Unknown History valsartan 80 mg tablet 80 mg PO BID 06/30/24 06/30/24 Unknown History zinc 100 mg tablet 100 mg PO DAILY 06/30/24 06/30/24 Unknown History Exam Airway Mallampati Class: III TM Dist: >3cm Neck ROM: Full Loose/Missing/Broken Teeth: No Heart: RRR Lungs: CTA Assessment and Plan Assessment Anesthesia Assessment: Anesthesia Plan Discussed Final Anesthetic Review NPO: Yes ASA Class: III Final Preanesthetic Review: Meds/Allgs Chart Reviewed, Consent Obtained/Reviewed and Anes Risks/Benef Reviewed Patient Risk: Intermediate Procedure Risk: Low Anesthetic Plan Anesthetic Plan: MAC: Disposition: Standard PACU
[2024-07-02 09:32] VITALS: BMI 29.7
[2024-07-02] MEDS: Lactated Ringers 1,000 ML 100 ML IVCONT (09:43)
[2024-07-02 09:53] VITALS: BP 95/78; PULSE 64; RESP 18; TEMP 36.7; O2SAT 96
--- NOTE | 2024-07-02 09:57 | MHC.SHP ---
Pre-Procedural Eval Section A - 24 Hr Update-Section A only Date of Service: 07/02/24 Section B - Complete if H&P > 30 days Chief Complaint: Encounter for screening for malignant neoplasm of Relevant Family History (Specify if Yes): No Relevant Social History: None Present Medications: see Short Stay Collaborative assessment Medical History: No relevant PMH History of Previous Operations: No relevant previous surgery Allergies: Allergies Allergy/AdvReac Type Severity Reaction Status Date / Time gadoterate meglumine Allergy Hives Verified 07/02/24 09:34 [From Dotarem] Iodinated Contrast Media Allergy Hives Verified 07/02/24 09:34 [Contrast Dye] Review of Systems Sugical H&P ROS: Negative: Constitution, Cardiovascular, Respiratory, Neurological, Psychiatric, Hem-Onc, Allergic/Immunologic, Gastrointestinal, Genitourinary, Musculoskeletal, Integumentary, Endocrine and Eyes/Ears/Nose/Throat Exam Surgical H&P Exam: Normal: HEENT, Normal: Heart, Normal: Lungs, Normal: Extremities, Normal: Abdomen, Normal: Skin and Normal: Neurological Plan Diagnosis/Plan: Unchanged I have reviewed the history and physical and performed a pertinent physical examination on my patient. No changes have occurred unless specified. Time Spent With Patient Time: Total time managing care of this patient today ____ minutes.
[2024-07-02 10:34] VITALS: BP 89/54; PULSE 62; RESP 12; TEMP 36.2; O2SAT 97
[2024-07-02 10:49] VITALS: BP 102/66; PULSE 61; RESP 14; O2SAT 97
[2024-07-02 11:04] VITALS: TEMP 36.2
--- NOTE | 2024-07-02 11:16 | OP_ITS ---
DATE OF SERVICE: 07/02/2024 SURGEON: Valentin Styles MD INDICATIONS: Colon cancer screening and prior history of adenomatous colon polyps. PREOPERATIVE DIAGNOSIS: POSTOPERATIVE DIAGNOSIS: PROCEDURE PERFORMED: Colonoscopy to the terminal ileum. ESTIMATED BLOOD LOSS: COMPLICATIONS: ANESTHESIA: Monitored anesthesia care. ASSISTANTS: SPECIMENS: DESCRIPTION OF PROCEDURE: A history and physical was performed. The risks and benefits of the procedure were explained to the patient and informed consent was obtained. The patient was placed in the left lateral decubitus position. A digital rectal exam was performed and was found to be normal. The Olympus pediatric video colonoscope was introduced into the rectum and advanced to the cecum. The cecum was identified by transillumination, palpation, and identification of ileocecal valve. Examination was performed and the scope was removed. He tolerated the procedure well and was returned to recovery area in stable condition. FINDINGS: The terminal ileum was examined and appeared normal. The visualized colonic mucosa was within normal limits without evidence of masses or ulcers. No polyps were identified. The quality of the prep was good. Retroflexed examination showed some moderate-sized internal hemorrhoids. IMPRESSION: Normal colonoscopy. RECOMMENDATIONS: 1. Follow up as needed. 2. Repeat colonoscopy is recommended in 5 years for family history of colon polyps. MD COLBY Cheung/ROSIO / [id number]
--- OUTSIDE RECORDS SUMMARY | 2024-07-07 06:55 | XMS_ITS ---
Author Organization [facility] Address [address] [place] [address] Care Team Providers Care Supervisor Fabrication Name Role Phone Renato Barraza MD Primary Care Provider Unavaila Valentin Solis Jr REASON FOR VISIT screening Encounters Encounter Location Date Provider Diagnosis [facility] Outpatient [address] [place], [place] [id number] 07/02/2024 Valentin Styles Jr PLAN OF TREATMENT No Information
--- OUTSIDE RECORDS SUMMARY | 2024-07-07 06:56 | XMS_ITS | Patient Health Record ---
Author Organization [facility] Address [address] [place] [address] Care Team Providers Care Furniture Sprayer Name Role Phone Renato Barraza MD Primary Care Provider Valentin Luna Jr Unavailable ALLERGIES No Known Allergies REASON FOR REFERRAL Referring Provider First Name Renato Referring Provider Last Name Christi Referring Provider Speciality Internal M edicine Referred Organization [facility] Referred Provider Valentin Styles Jr Referred Address [address] [facility],[address],[place], [place],[address], Referred Provider Specialty Gastroentero logy General Notes Merna Gann 024 01:44:42 PM EDT > [place] [facility] [place] from Dr. Barraza's office for visit with Dr. Styles (said appt date was 05-11-2024) [phone] Referral Priority Routine MEDICATIONS Medication SIG (Take, [...] Problem Colon cancer screening (Z12.11) Active confirmed 945761825 Problem skilled nursing (current) use of anticoagulants (Z79.01) Active confirmed Long-term current use of anticoagulant (088884959) Problem Encounter for other preprocedural examination (Z01.818) Active confirmed 718793596 Problem Iron deficiency anemia, unspecified iron deficiency anemia type (D50.9) Active confirmed 94003965 Problem FH: colon cancer (Z80.0) Active confirmed 962979003 Problem Gastroesophageal reflux disease, unspecified whether esophagitis present (K21.9) Active confirmed 404183758 VITAL SIGNS Temperature 97.7 degrees Fahrenheit 06/02/2024 Blood pressure diastolic 00 mm Hg 06/02/2024 Height 69 in 06/02/2024 Blood pressure systolic 000 mm Hg 06/02/2024 Weight 204 lb 2 oz lbs 06/02/2024 BMI 30.14 kg/m2 06/02/2024 Encounters Encounter Location Date Provider Diagnosis [facility] [place] [address] [place], [place] [id number] 07/02/2024 Valentin Styles Jr [facility] [address] [place] [address] 06/02/2024 Valentin Styles Jr Colon cancer screening Z12.11 ; Encounter for other preprocedural examination Z01.818 ; FH: colon cancer Z80.0 and skilled nursing (current) use of anticoagulants Z79.01 ASSESSMENTS Encounter Date Diagnosis Assessment Notes Treatment Notes Treatment Clinical Notes 06/02/2024 Colon cancer screening (ICD-10 - Z12.11) Colonoscopy material was printed 06/02/2024 Encounter for other preprocedural examination (ICD-10 - Z01.818) 06/02/2024 FH: colon cancer (ICD-10 - Z80.0) 06/02/2024 skilled nursing (current) use of anticoagulants (ICD-10 - Z79.01) PLAN OF TREATMENT Future Test Test Name Order Date COLONOSCOPY 05/13/2013 COLONOSCOPY 11/26/2018 UPPER GI ENDOSCOPY 08/03/2020 COLONOSCOPY 06/02/2024 Insurance Providers Payer Name Payer Address Payer Phone Subscriber Number Group Number Insured Name Patient Relationship to Insured Coverage Start Date Coverage End Date [facility] [employer] [employer] [address] [place] [address] [id number] [address] ELIZABETH Self - patient is the insured MEDICAL (GENERAL) HISTORY Medical History History ICD Code colonoscopy 03/10/19 normal, prior history of adenomatous colon polyps, followup Nonischemic cardiomyopathy, with history of ventricular tachycardia Atrial fibrillation Hyperlipidemia Hypertension Surgical History Surgery Date(Month/Year) Pacemaker/defibrillator placement 06/17
--- OUTSIDE RECORDS SUMMARY | 2024-07-07 06:56 | XMS_ITS ---
Author Organization [facility] Address [address] [place] [address] Care Team Providers Care Buffing Machine Operator Name Role Phone Renato Barraza [...] Problem FH: colon cancer (Z80.0) Active confirmed 717348452 VITAL SIGNS BMI 30.14 kg/m2 06/02/2024 Blood pressure systolic 000 mm Hg 06/02/20 24 Blood pressure diastolic 00 mm Hg 024 Height 69 in 06/02/2024 Temperature 97.7 degrees Fahrenheit 06/02/20 24 Weight 204 lb 2 oz lbs 06/02/2024 Encounters Encounter Location Date Provider Diagnosis 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
== END 2024-07-02 11:40 | disposition home or self-care (01) ==
PROVIDERS: PCP Internal Medicine; Visit Provider Internal Medicine Gastroenterology
PROC: 0DJD8ZZ Inspection of Lower Intestinal Tract, Via Natural or Artificial Opening Endoscopic (ICD-10-PCS; CPT 45378; principal; 2024-07-02 11:00)
DX: Z12.11 Encounter for screening for malignant neoplasm of colon (principal); K64.8 Other hemorrhoids; Z86.0101 Personal history of adenomatous and serrated colon polyps; Z80.0 Family history of malignant neoplasm of digestive organs; I10 Essential (primary) hypertension; E78.5 Hyperlipidemia, unspecified; I48.91 Unspecified atrial fibrillation; Z95.0 Presence of cardiac pacemaker; Z79.01 Long term (current) use of anticoagulants
CPT/HCPCS: 45378; J2003; J2704

== ENCOUNTER 2025-01-03 10:52 | Outpatient (AMB) | payer BC, SELFPAY ==
--- NOTE | 2025-01-03 11:03 | MHC.PC.OV ---
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 Required: No Accompanied by: Self / Same As Patient Allergies gadoterate meglumine [From Dotarem] Allergy (Verified 01/03/25 11:32) Hives Iodinated Contrast Media [Contrast Dye] Allergy (Verified 01/03/25 11:32) Hives Medication List - Last Reconciled 01/03/25 by Jean Claude Ogden MD apixaban (Eliquis) 5 mg PO BID aspirin 81 mg PO DAILY atorvastatin 40 mg PO DAILY [co W32-xbmw oil-omega 3-E 10 mg PO DAILY] ferrous sulfate (iron) 325 mg PO DAILY sotalol (Sotalol AF) 80 mg PO BID spironolactone 25 mg PO DAILY valsartan 80 mg PO BID zinc 100 mg PO DAILY Tobacco use date assessed: 01/03/25 Dental Screening Dental Screen Date: 01/03/25 Did you have a dental visit in the last 12 months?: Yes Did you have a dental problem in the last 6 months where you did not have access to dental care?: No PFSH Medical History HTN (hypertension) Hx of ventricular tachycardia Non-ischemic cardiomyopathy Anticoagulant long-term use Bleeding hemorrhoids Atherosclerotic cardiovascular disease Cardiomyopathy PAF (paroxysmal atrial fibrillation) Orthostatic hypotension Anemia GERD (gastroesophageal reflux disease) Hx of cardiomyopathy On beta angela at home On anticoagulant therapy Elevated cholesterol Arrhythmia CAD (coronary artery disease) Surgical History History of implantable cardioverter-defibrillator (ICD) placement (06/04/21) Hx of cardiac catheterization H/O colonoscopy (~07/02/24) Family History Mother No problems noted. Father No problems noted. Social History Housing: House Are you a primary insurance healthcare consultant to a significant other at home: No Do you presently have visiting nurse or other home services: No Alcohol intake: current Alcohol intake frequency: former alcohol drinker Patient Tobacco Use Status: Former Tobacco user e-Cigarette/Vaping Use: Former Use service: No Current occupational status: retired Cognitive needs: No Hearing needs: No Vision needs: Yes (rx glasses) Questionnaire PHQ-9 Over the last 2 weeks, how often have you been bothered by any of the following problems? 1. Little interest or pleasure in doing things: not at all 2. Feeling down, depressed, or hopeless: not at all 3. Trouble falling or staying asleep, or sleeping too much: not at all 4. Feeling tired or having little energy: not at all 5. Poor appetite or overeating: not at all 6. Feeling bad about yourself - or that you are a failure or have let yourself or your family down: not at all 7. Trouble concentrating on things, such as reading the newspaper or watching television: not at all 8. Moving or speaking so slowly that other people could have noticed. Or the opposite - being so fidgety or restless that you have been moving around a lot more than usual: not at all 9. Thoughts that you would be better off or of hurting yourself in some way: not at all Total score: 0 Depression Screening Interpretation: Negative Depression Screening Done: Yes Source: Developed by Drs. Demetrius Lunsford, Светлана Jimenes, Misha Barrientos and colleagues, with an educational jayda from [employer]. Thrive Questionnaire Date Thrive assessed: 01/03/25 I am a: Patient Within the past 12 months, did the food you bought not last and you didn't have the money to get more?: Never true Within the past 12 months, did you worry whether your food would run out before you got money to buy more?: Never true Do you have trouble paying for medicines?: No Do you have trouble getting transportation to medical appointments?: No Do you have trouble paying your heating and electricity bill?: No Do you have trouble taking care of your child, family member or friend?: No Do you have trouble with day-to-day activities such as bathing, preparing meals, shopping, managing finances, etc.?: No Are you currently unemployed and looking for a job?: No Are you interested in more education?: No Currently or been in a relationship where the following occur: No concerns reported THRIVE Score: 0 AUDIT C Alcohol Use Questionnaire (AUDIT-C) 1. How often do you have a drink containing alcohol?: Never 3. How often do you have six or more drinks on one occasion?: Never Total Score: 0 ADAIR-7 AMB Questionnaire ADAIR-7 Date ADAIR - 7 assessed: 01/03/25 Feeling nervous, anxious, or on edge: 0 = Not at all Not being able to stop or control worryin = Not at all Worrying too much about different things: 0 = Not at all Trouble relaxin = Not at all Being so restless that it is hard to sit still: 0 = Not at all Becoming easily annoyed or irritable: 0 = Not at all Feeling afraid as if something awful might happen: 0 = Not at all Total ADAIR-7 score (0-4 normal; 5-9 mild; 10-14 moderate; 15-21 severe): 0 Source: Developed by Drs. Demetrius Lunsford, Светлана Jimenes, Misha Barrientos and colleagues, with an educational jayda from [employer]. Physical exam (Primary Care) Vital Signs: Last Vital Signs Temp 97.3 F 01/03/25 11:07 Pulse 63 01/03/25 11:07 BP 112/70 01/03/25 11:07 Pulse Ox 97 01/03/25 11:07 Oxygen Delivery Method Room Air 01/03/25 11:07 BMI result Body Mass Index 29.0 Tobacco/Smoking Status: Tobacco use Status Tobacco use date assessed 01/03/25 01/03/25 11:05 Patient Tobacco Use Status Former Tobacco user 01/03/25 11:05 e-Cigarette/Vaping Use Former Use 01/03/25 11:05 PHQ-9: PHQ-9 Score PHQ-9: Total score 0 01/03/25 11:12 Depression Screening Interpretation: Negative Thrive Assessment: Date of Thrive Assessment Date Thrive assessed 01/03/25 01/03/25 11:05 Currently or been in a relationship where the following occur: No concerns reported Advance Care Planning discussion: Exists, not on file Date of discussion: 01/03/25 Time spent: 1-15 minutes, not on file Actual minutes spent: 5 Coding Level of Care Code Est Pt Level 4 (64864) Complex EM visit Add On G2211 Diagnoses Cardiomyopathy I42.9 PAF (paroxysmal atrial fibrillation) I48.0 Additional Codes Vital Signs *Quality* - Advance Care Planning discussion: Exists, not on file ([id number]) Vital Signs *Quality* - Time spent: 1-15 minutes, not on file ([id number]) Assessment & Plan Assessment & Plan (1) Cardiomyopathy: Code(s): I42.9 - Cardiomyopathy, unspecified Category: Medical Plan: Condition is stable. Continue meds at current medications. (2) PAF (paroxysmal atrial fibrillation): Code(s): I48.0 - Paroxysmal atrial fibrillation Category: Medical Plan: Now in Sinus rhythm. Rate control and anticoagulation. Plan History of Present Illness - The patient is a 64-year-old male presenting with a wellness visit and follow-up on anemia management. - He previously had a cardiac arrest, resulting in the placement of a defibrillator. - The patient had atrial fibrillation, attributed to excessive alcohol consumption, which resolved after he stopped drinking. - Maintains regular six-month physical examinations. - Previously had anemia due to bleeding, managed with iron supplements. - Inquires about the necessity of continued iron supplement use pending updated blood work results. 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 - Denies current alcohol use and previously stopped drinking due to health issues. - No reported limitations in physical activity and is able to climb stairs and walk several miles. - Confirmed presence of a living will and healthcare proxy, primarily managed by his spouse. Review of Systems - Cardiovascular: Denies current atrial fibrillation symptoms. - Hematologic: Reports historical anemia; denies current symptoms indicating severe anemia. - General: Denies limitations in physical activities. Physical Exam General: Cooperative and healthy appearing Nutritional Appearance: Well nourished Orientation/consciousness: Patient oriented x3 Limitations: No limitations Head: Normal to inspection General: Appearance normal, both eyes and all related structures Neck: Normal visual inspection Chest: Normal palpation of entire chest wall Respiratory: N ormal respiratory effort Neurology: Patient oriented x3, no limitations in activities Results - Labs: Pending updated blood work; previous labs completed in June Plan 1. Cardiomyopathy - Continue regular six-month physical examinations. - Maintain ongoing monitoring of cardiac health. 2. Anemia - Conduct fasting blood work to evaluate anemia status. - Review iron supplementation necessity based on test outcomes. 3. History Of Atrial Fibrillation - Maintain blood thinner therapy as per previous practice. - Monitor for any return of symptoms. Discussion Notes During the visit, I discussed with the patient the importance of maintaining his six-month physical examination schedule to monitor his cardiac health following the prior cardiac arrest and the presence of an implanted defibrillator. We addressed his history of atrial fibrillation, which has since resolved after cessation of excessive alcohol consumption, focusing on the importance of maintaining a lifestyle free from alcohol and adhering to prescribed medications such as blood thinners. We talked about his previous diagnosis of anemia and the management with iron supplements. The plan includes obtaining blood work to evaluate his current anemia status and then determining the need to continue iron supplements based on those results. Consent and understanding were confirmed regarding all discussed management strategies. Patient Instructions - Continue attending six-month physical exams. - Go for fasting blood work as instructed. - Follow all prescribed medication routines. - Remain abstinent from alcohol. - Consult healthcare services if experiencing chest pain, dizziness, or any concerning symptoms. - Discuss any changes in your health with me during follow-ups.
[2025-01-03 11:07] VITALS: BP 112/70; PULSE 63; TEMP 36.3; O2SAT 97; BMI 29.0
--- OUTSIDE RECORDS SUMMARY | 2025-01-03 12:21 | XMS_ITS | Patient Health Record ---
Author Organization [facility] Address [address] [place] [address] Care Team Providers Care Truck Sales Manager Name Role Phone Renato Barraza MD Primary Care Provider Valentin Luna Jr Unavailable Allergies No Known Allergies Reason For Referral Referring Provider First Name Renato Referring Provider Last Name Christi Referring Provider Speciality Internal M edicine Referred Organization [facility] Referred Provider Valentin Styles Jr Referred Address [address],[place], [place],[address], Referred Provider Specialty Gastroentero logy General Notes Merna Gann 024 01:44:42 PM EDT > requested an [facility] blue referral from Dr. Barraza's office for visit with Dr. Styles (said appt date was 05-11-2024) [phone] Referral Priority Routine Medications Medication SIG (Take, Route, Frequency, Duration) Notes [...] MOUTH EVERY DAY Oral for 30 Active Immunizations Vaccine Route Administration Date Status Comme nts Influenza Unknown 11/26/2018 Refused Influenza Unknown 06/02/2024 Refused Social History Alcohol Screen Question Answer Notes Did you have a drink containing alcohol in the p ast year? Yes How often did you have a dri nk containing alcohol in the past year? Never (0 point) Points 0 Interpretation Negative Section Notes: Tobacco use is negative. Alc ohol use is limited to the weekends. Tobacco use is negative. Alc ohol use is limited to the weekends. Tobacco use is negative. Alc ohol use is limited to the weekends. Tobacco use is negative. Alc ohol use is limited to the weekends. Tobacco use is negative. Alc ohol use is limited to the weekends. Problems Problem Type SNOMED Code ICD Code Onset Dates Problem Status W/U Status Risk Notes Problem 170922731 Colon cancer screening (Z12.11) Active confirmed Problem longterm (curre nt) use of anticoagulants (Z79.01) Active confirmed Problem 429137455 Encounter for ot her preprocedural examination (Z01.818) Active confirmed Problem 57435609 Iron deficiency anemia, unspecified iron deficiency anemia type (D50.9) Active confirmed Problem 910675952 FH: colon cancer (Z80.0) Active confirmed Problem 558075503 Gastroesophageal reflux disease, unspecified whether esophagitis present (K21.9) Active confirmed Vital Signs Temperature 97.7 degrees Fahrenheit 06/02/2024 Blood pressure diastolic 00 mm Hg 06/02/2024 Height 69 in 06/02/2024 Blood pressure systolic 000 mm Hg 06/02/2024 Weight 204 lb 2 oz lbs 06/02/2024 BMI 30.14 kg/m2 06/02/2024 Encounters Encounter Location Date Provider Diagnosis [facility] Outpatient [address] [place], [place] [phone] 07/02/2024 Valentin Styles Jr Colon cancer screening Z12.11 ; Personal history of colonic polyps Z86.0100 and Family history of colon cancer Z80.0 [facility] [address] [place] [address] 06/02/2024 Valentin Styles Jr Colon cancer screening Z12.11 ; Encounter for other preprocedural examination Z01.818 ; FH: colon cancer Z80.0 and longterm (current) use of anticoagulants Z79.01 Assessments Encounter Date Diagnosis (ICD Code) Assessment Notes Treatment Notes Treatment Clinical Notes Section Notes 07/02/2024 Colon cancer screening (ICD-10 - Z12.11) 07/02/2024 Personal history of colonic polyps (ICD-10 - Z86.0100) 06/02/2024 Colon cancer screening (ICD-10 - Z12.11) Colonoscopy material was printed We discussed colonoscopy today. We discussed risks and benefits of the procedure today. He understands these and agrees to proceed. This will be scheduled at his convenience. He is advised to stop aspirin and iron one week before the procedure, Eliquis 3 days before the procedure, and spironolactone the day before the procedure. 06/02/2024 Encounter for other preprocedural examination (ICD-10 - Z01.818) We discussed colonoscopy today. We discussed risks and benefits of the procedure today. He understands these and agrees to proceed. This will be scheduled at his convenience. He is advised to stop aspirin and iron one week before the procedure, Eliquis 3 days before the procedure, and spironolactone the day before the procedure. 07/02/2024 Family history of colon cancer (ICD-10 - Z80.0) 06/02/2024 FH: colon cancer (ICD-10 - Z80.0) We discussed colonoscopy today. We discussed risks and benefits of the procedure today. He understands these and agrees to proceed. This will be scheduled at his convenience. He is advised to stop aspirin and iron one week before the procedure, Eliquis 3 days before the procedure, and spironolactone the day before the procedure. 06/02/2024 longterm (current) use of anticoagulants (ICD-10 - Z79.01) We discussed colonoscopy today. We discussed risks and benefits of the procedure today. He understands these and agrees to proceed. This will be scheduled at his convenience. He is advised to stop aspirin and iron one week before the procedure, Eliquis 3 days before the procedure, and spironolactone the day before the procedure. Plan Of Treatment Future Test Test Name Order Date COLONOSCOPY 05/13/2013 COLONOSCOPY 11/26/2018 UPPER GI ENDOSCOPY 08/03/2020 COLONOSCOPY 06/02/2024 Insurance Providers Payer Name Payer Address Payer Phone Subscriber Number Group Number Insured Name Patient Relationship to Insured Coverage Start Date Coverage End Date [facility] [address] [place] [address] [id number]ETH Self - patient is the insured Medical (General) History Medical History History ICD Code colonoscopy 03/10/19 normal, prior history of adenomatous colon polyps, followup Nonischemic cardiomyopathy, with history of ventricular tachycardia Atrial fibrillation Hyperlipidemia Hypertension Surgical History Surgery Date(Month/Year) Pacemaker/defibrillator placement 06/17
== END 2025-01-03 11:32 | disposition home or self-care (01) ==
LOC: HO.HMCHD 10:53
PROVIDERS: PCP Internal Medicine; Visit Provider Internal Medicine
DX: I42.9 Cardiomyopathy, unspecified (principal); I48.0 Paroxysmal atrial fibrillation; Z00.00 Encounter for general adult medical examination without abnormal findings

== ENCOUNTER → 2025-01-03 10:52 | Outpatient (BNVA) | payer BC, SELFPAY | PROVIDERS: PCP Internal Medicine; Visit Provider Internal Medicine | DX: Z13.89 Encounter for screening for other disorder (principal) ==

== ENCOUNTER 2025-02-04 07:44 | Outpatient (REF) | payer BC, SELFPAY ==
[2025-02-04 10:36] LABS: Appearance Urine Clear; Glucose Urine UA >=1000 mg/dL (Negative); PH 5.0 (5.0-9.0); Specific Gravity - Urine 1.025 (1.005-1.025); UMIC TRIGGER UA YES
[2025-02-04 10:43] LABS: Hematocrit 43.9 % (42.0-52.0); Hemoglobin 15.1 g/dl (14.0-18.0); Mean Corpuscular HGB Conc 34.4 g/dl (31.0-36.0); Mean Corpuscular Hemoglobin 31.1 pg (27.0-33.0); Mean Corpuscular Volume 90.3 fL (80.0-98.0); NRBC Abs Auto 0.000 X10*3/uL (0.0-0.012); NRBC Pct Auto 0.0 /100WBC (0.0-0.2); Platelet Count 133 X10*3/uL (160-400); Red Blood Count 4.86 X10*6/uL (4.60-5.80); White Blood Count 5.8 X10*3/uL (4.8-10.8)
[2025-02-04 11:08] LABS: Alanine Aminotransferase 64 U/L (0-40); Albumin Level 4.4 g/dL (3.5-5.0); Alkaline Phosphatase 62 U/L (39-117); Anion Gap 11 (12-20); Aspartate Amino Transferase 43 U/L (5-37); Blood Urea Nitrogen 23 mg/dL (9-16); Calcium 9.4 mg/dL (8.4-10.2); Carbon Dioxide 24 mmol/L (22-29); Chloride 108 mmol/L (96-108); Cholesterol 99 mg/dL (<200); Estimated Glomerular Filt Rate > 60; HDL Cholesterol 43 mg/dL (>40); Potassium 4.1 mmol/L (3.3-5.1); Sodium 139 mmol/L (135-145); Thyroid Stimulating Hormone 2.51 uIU/mL (0.32-4.0); Total Protein 7.0 g/dL (6.5-8.0); Triglycerides 51 mg/dL (<150)
== END 2025-02-04 07:45 | disposition home or self-care (01) ==
LOC: HO.HMGCLDS 07:44
PROVIDERS: PCP Internal Medicine; Visit Provider Internal Medicine
DX: I25.10 Atherosclerotic heart disease of native coronary artery without angina pectoris (principal); I42.9 Cardiomyopathy, unspecified
CPT/HCPCS: 36415; 80048; 80061; 80076; 81001; 84443; 85027

== ENCOUNTER 2025-02-14 07:06 | Outpatient (REF) | payer BC, SELFPAY ==
--- OUTSIDE RECORDS SUMMARY | 2025-02-14 07:08 | XMS_ITS | Patient Health Record ---
Author Organization [facility] Address [address] [place] [address] Care Team Providers Care Mail Processing Associate Name Role Phone Christi (RETIRED) Renato ELLIS Primary Care Provide r Unavailable Valentin Styles Jr Unavailable Allergies No Known Allergies Reason For Referral Referring Provider First Name Renato Referring Provider Last Name Christi (RETI RED) Referring Provider Speciality Internal M edicine Referred Organization [facility] Referred Provider Valentin Styles Jr Referred Address [address],[place], [place],[address], Referred Provider Specialty Gastroentero logy General Notes Merna Gann 024 01:44:42 PM EDT > requested an o blue referral from Dr. Barraza's office for visit with Dr. Styles (said appt date was 05-11-2024) [phone] Referral Priority Routine Medications Medication SIG (Take, [...] Problem Status W/U Status Risk Notes Problem 712304774 Colon cancer screening (Z12.11) Active confirmed Problem snf (curre nt) use of anticoagulants (Z79.01) Active confirmed Problem 319958732 Encounter for ot her preprocedural examination (Z01.818) Active confirmed Problem 27860527 Iron deficiency anemia, unspecified iron deficiency anemia type (D50.9) Active confirmed Problem 326813945 FH: colon cancer (Z80.0) Active confirmed Problem 350555588 Gastroesophageal reflux disease, unspecified whether esophagitis present (K21.9) Active confirmed Vital Signs Temperature 97.7 degrees Fahrenheit 06/02/2024 Blood pressure diastolic 00 mm Hg 06/02/2024 Height 69 in 06/02/2024 Blood pressure systolic 000 mm Hg 06/02/2024 Weight 204 lb 2 oz lbs 06/02/2024 BMI 30.14 kg/m2 06/02/2024 Encounters Encounter Location Date Provider Diagnosis [facility] Outpatient [address], [place] [phone] 07/02/2024 Valentin Styles Jr Colon cancer screening Z12.11 ; Personal history of colonic polyps Z86.0100 and Family history of colon cancer Z80.0 [facility] [address] [place] [address] 06/02/2024 Valentin Styles Colon cancer screening Z12.11 ; Encounter for other preprocedural examination Z01.818 ; FH: colon cancer Z80.0 and intermediate manager (current) use of anticoagulants Z79.01 Assessments Encounter [...] spironolactone the day before the procedure. 06/02/2024 snf (current) use of anticoagulants (ICD-10 - Z79.01) [...] Insured Coverage Start Date Coverage End Date [facility] PROFESSIONAL CLAIMS [address] [place] [address] [id number]ABETH Self - patient is the insured Medical (General) History Medical History History ICD Code colonoscopy 03/10/19 normal, prior history of adenomatous colon polyps, followup Nonischemic cardiomyopathy, with history of ventricular tachycardia Atrial fibrillation Hyperlipidemia Hypertension Surgical History Surgery Date(Month/Year) Pacemaker/defibrillator placement 06/17
[2025-02-14 10:29] LABS: Appearance Urine Clear; Glucose Urine UA >=1000 mg/dL (Negative); Hemoglobin A1C 164.2808 umol/L; PH 5.0 (5.0-9.0); Specific Gravity - Urine 1.025 (1.005-1.025); Total Hemoglobin (HGBA1C) 3878.4609 umol/L; UMIC TRIGGER UA YES
== END 2025-02-14 07:07 | disposition home or self-care (01) ==
LOC: HO.HMGCLDS 07:06
PROVIDERS: PCP Internal Medicine; Visit Provider Internal Medicine
DX: R73.9 Hyperglycemia, unspecified (principal); I25.10 Atherosclerotic heart disease of native coronary artery without angina pectoris; I42.9 Cardiomyopathy, unspecified
CPT/HCPCS: 36415; 81001; 83036

== ENCOUNTER 2025-07-04 09:54 | Outpatient (AMB) | payer BC, SELFPAY ==
--- NOTE | 2025-07-04 09:57 | MHC.PC.OV ---
Vital Signs 07/04/25 10:02 Height 5 ft 7.72 in Weight 193 lb BMI 29.6 BP 120/80 Blood Pressure Location Lt brachial Position Sitting Respiration 18 Pulse 66 Pulse Source Pulse Oximeter Temp 97.9 F Temp Source Temporal Artery Scan Pulse Oximetry (%) 99 Oxygen Delivery Method Room Air Intake Visit Reasons: routine City Assessor Required: No Accompanied by: Self / Same As Patient Allergies gadoterate meglumine (From Dotarem) Allergy (Verified 07/04/25 09:57) Hives Iodinated Contrast Media (Contrast Dye) Allergy (Verified 07/04/25 09:57) Hives Medication List - Last Reconciled 07/04/25 by Quoc Contreras MD apixaban (Eliquis) 5 mg PO BID aspirin 81 mg PO DAILY atorvastatin 40 mg PO DAILY [co C99-erua oil-omega 3-E 10 mg PO DAILY] dapagliflozin propanediol (Farxiga) 10 mg PO DAILY sotalol (Sotalol AF) 80 mg PO BID spironolactone 25 mg PO DAILY valsartan 80 mg PO BID zinc 100 mg PO DAILY Tobacco use date assessed: 01/03/25 Dental Screening Dental Screen Date: 01/03/25 HPI HPI Comments History of Present Illness Details History of Present Illness The patient is a 64 year old male presenting for follow-up and review of recent lab work. He has a history of anemia secondary to bleeding hemorrhoids, for which he was taking iron supplementation for a couple of years as prescribed by Dr. Workman, but he has since run out and stopped taking it. Recent labs show his hemoglobin levels are normal. He has a cardiac history including atrial fibrillation and a past cardiac arrest, for which he has a pacemaker. His medications for these conditions include Eliquis 5 mg twice a day, sotalol 80 mg twice a day, spironolactone 25 mg daily, and valsartan 80 mg twice a day. An echocardiogram from 2020 showed an ejection fraction of 35-40%; he typically has an echocardiogram once a year but notes it has been a while since the last one. He sees a customer supply chain analyst at [facility]. The patient was diagnosed with prediabetes in January of the previous year with a hemoglobin A1c of 6.1%. Results from January of the current year show he is still prediabetic with a an A1c of 6.0. He was previously unaware of this diagnosis. He reports managing his diet by fasting and minimizing sugar, mainly consuming frozen fruit at night. For hypercholesterolemia, he takes atorvastatin 40 mg, which he understood was prescribed for a blockage related to his cardiac problems. His last cholesterol panel showed an LDL of 46 mg/dL. The patient has never received a flu shot or a COVID-19 vaccine, citing a preference for natural methods of staying healthy. Medical History: - Atrial fibrillation, with a history of irregular heartbeat - History of cardiac arrest - Pacemaker in situ - Reduced ejection fraction, 35-40% on 2020 echocardiogram - Prediabetes, with A1c of 6.1% in January 2024 and 6.0% in January 2025 - Hypercholesterolemia - History of anemia secondary to bleeding hemorrhoids Surgical History: - Pacemaker placement Medications: - Eliquis 5 mg twice a day for atrial fibrillation - Sotalol 80 mg twice a day for atrial fibrillation - Atorvastatin 40 mg for hypercholesterolemia - Farxiga for heart health and blood sugar - Spironolactone 25 mg for heart function - Valsartan 80 mg twice a day for heart function and blood pressure control Diagnostic Results: - Labs: - Hemoglobin: Normal - LDL cholesterol: 46 mg/dL - Hemoglobin A1c: 6.1% (January 2023), 6.0% (January 2024) - Diagnostics: - Echocardiogram (2020): Ejection fraction 35-40% Social History - Employment: Retired. 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 - Diet: Reports fasting and avoiding an intake of breakfast. He states he does not consume much sugar, with his primary source being frozen fruit at night. He eats pasta and bread, which he makes himself. - Health Habits: Reports being health-focused and having turned his life around after his heart issues. - Immunizations: He declines the flu and COVID-19 vaccinations, preferring natural methods to stay healthy. Health Maintenance - Immunizations: Discussed influenza and COVID-19 vaccinations; the patient declines both at this time. - Diet: Advised to reduce carbohydrate intake, including items like rice, pasta, and bread, to manage prediabetes. - Screening: Lab work including an A1c and iron panel has been ordered for his next visit in six months, which will be his annual physical. - Cardiology follow-up: Encouraged to obtain records from his customer supply chain analyst at [facility], as yearly echocardiograms are recommended for his reduced ejection fraction. Patient was informed and verbally consented to the use of an ambient scribe for clinic note documentation during this visit. Vital signs reviewed. Comprehensive history, review of systems, and physical exam completed. Medications, allergies, and problem list reviewed and updated. Counseling provided on nutrition, regular exercise, sleep hygiene, and moderation of alcohol use. Discussed age-appropriate screenings (mammogram, colonoscopy, Pap, bone density) and immunizations (flu, COVID, shingles, Tdap). Screened for depression, fall risk, and home safety; no current concerns. Discussed stress management, dental and vision care, and importance of ongoing preventive follow-up. Routine labs ordered for metabolic and lipid screening. Patient educated on healthy lifestyle and agrees with the plan. [facility] Medical History (Updated 07/04/25 @ 10:26 by Quoc Contreras MD) Mixed hyperlipidemia Atrial fibrillation History of anemia Prediabetes HTN (hypertension) Hx of ventricular tachycardia Non-ischemic cardiomyopathy Anticoagulant long-term use Bleeding hemorrhoids Atherosclerotic cardiovascular disease Cardiomyopathy PAF (paroxysmal atrial fibrillation) Orthostatic hypotension Anemia GERD (gastroesophageal reflux disease) Hx of cardiomyopathy On beta angela at home On anticoagulant therapy Elevated cholesterol Arrhythmia CAD (coronary artery disease) Surgical History History of implantable cardioverter-defibrillator (ICD) placement (06/04/21) Hx of cardiac catheterization H/O colonoscopy (~07/02/24) Family History Mother No problems noted. Father No problems noted. Social History Housing: House Are you a primary resident caregiver to a significant other at home: No Do you presently have visiting nurse or other home services: No Alcohol intake: current Alcohol intake frequency: former alcohol drinker Patient Tobacco Use Status: Former Tobacco user e-Cigarette/Vaping Use: Former Use service: No Current occupational status: retired Cognitive needs: No Hearing needs: No Vision needs: Yes (rx glasses) Questionnaire Thrive Questionnaire Date Thrive assessed: 01/03/25 ADAIR-7 AMB Questionnaire ADAIR-7 Date ADAIR - 7 assessed: 01/03/25 Source: Developed by Drs. Demetrius Lunsford, Светлана Jimenes, Misha Barrientos and colleagues, with an educational jayda from [employer]. Review of Systems Narrative Review of Systems - General: Reports feeling 100%. - Cardiovascular: Reports a history of irregular heartbeat. Denies issues with blood pressure. - Hematologic: Reports a history of anemia and bleeding hemorrhoids. - Gastrointestinal: Reports past constipation while taking iron supplements. All systems reviewed & are unremarkable except as reviewed in HPI and above Physical exam (Primary Care) Vital Signs: Last Vital Signs Temp 97.9 F 07/04/25 10:02 Pulse 66 07/04/25 10:02 Resp 18 07/04/25 10:02 BP 120/80 07/04/25 10:02 Pulse Ox 99 07/04/25 10:02 Oxygen Delivery Method Room Air 07/04/25 10:02 BMI result Body Mass Index 29.6 Tobacco/Smoking Status: Tobacco use Status Tobacco use date assessed 01/03/25 07/04/25 09:58 Patient Tobacco Use Status Former Tobacco user 07/04/25 09:58 e-Cigarette/Vaping Use Former Use 07/04/25 09:58 Thrive Assessment: Date of Thrive Assessment Date Thrive assessed 01/03/25 07/04/25 09:58 Narrative Physical Exam General: Alert and oriented, Well nourished, No acute distress. Eye: Pupils are equal, round and reactive to light, Intact accommodation, Extraocular movements are intact, Normal conjunctiva, Vision unchanged. HENT: Normocephalic, Atraumatic, Tympanic membranes are clear, Normal hearing, Oral mucosa is moist, No pharyngeal erythema, Ear canals patent. Respiratory: Lungs CTA bilaterally, No wheeze, Respirations are non-labored. Cardiovascular: Irregular rhythm due to atrial fibrillation, Regular rate, S1 auscultated, S2 auscultated, No murmur, Good pulses equal in all extremities, Normal peripheral perfusion, No edema. Gastrointestinal: Soft, Non-tender, Non-distended, Normal bowel sounds, No organomegaly. Musculoskeletal: Normal range of motion, Normal strength, No tenderness, No swelling, No deformity, Normal gait. Integumentary: Warm, Dry, [place], Intact. Neurologic: Alert, Oriented, Normal sensory, Normal motor function, No focal defects, Cranial Nerves II-XII are grossly intact, Normal deep tendon reflexes. Psychiatric: Cooperative, Appropriate mood & affect, Normal judgment. Coding Level of Care Code Est Pt Level 4 (83287) Complex visit Add On G2211 Diagnoses Prediabetes R73.03 History of anemia Z86.2 Paroxysmal atrial fibrillation I48.0 Atrial fibrillation type: paroxysmal Cardiomyopathy, unspecified type I42.9 Cardiomyopathy type: unspecified Mixed hyperlipidemia E78.2 Assessment & Plan Assessment & Plan (1) Prediabetes: Comment: - The patient was informed of his prediabetic status, with a recent A1c of 6.0. - He was counseled on dietary modifications, emphasizing the reduction of not just sugar but overall carbohydrates, including rice, pasta, and bread. - We will repeat blood work, including an A1c, in six months before his annual physical to monitor his status. Code(s): R73.03 - Prediabetes Category: Medical (2) History of anemia: Comment: - The patient's history of anemia secondary to bleeding hemorrhoids was discussed. - His recent labs show normal hemoglobin levels. - He can stop taking iron supplements, which should also alleviate constipation. - An iron panel will be ordered with his next labs in six months. Code(s): Z86.2 - Personal history of diseases of the blood and blood-forming organs and certain disorders involving the immune mechanism Category: Medical (3) Atrial fibrillation: Comment: - Stable on eliqiuis and sotalol Code(s): I48.91 - Unspecified atrial fibrillation Category: Medical Qualifiers: Atrial fibrillation type: paroxysmal Qualified Code(s): I48.0 - Paroxysmal atrial fibrillation (4) Cardiomyopathy: Comment: - Continue current medications (sotalol, spironolactone, valsartan). - The patient's last known ejection fraction was 35-40% in 2020. - He will be instructed to request that his customer supply chain analyst at [facility] send over his most recent records, including echocardiogram reports, as annual monitoring is recommended for reduced ejection fraction. Code(s): I42.9 - Cardiomyopathy, unspecified Category: Medical Qualifiers: Cardiomyopathy type: unspecified Qualified Code(s): I42.9 - Cardiomyopathy, unspecified (5) Mixed hyperlipidemia: Comment: - The patient's cholesterol is well-controlled with an LDL of 46 mg/dL on atorvastatin 40 mg. - He will continue this high-intensity statin therapy, which is appropriate given his cardiac history. Code(s): E78.2 - Mixed hyperlipidemia Category: Medical Plan: Health Maintenance: - Immunizations: Discussed influenza and COVID-19 vaccinations; the patient declines both at this time. - Diet: Advised to reduce carbohydrate intake, including items like rice, pasta, and bread, to manage prediabetes. - Screening: Lab work including an A1c and iron panel has been ordered for his next visit in six months, which will be his annual physical. - Cardiology follow-up: Encouraged to obtain records from his customer supply chain analyst at [facility], as yearly echocardiograms are recommended for his reduced ejection fraction. Patient was informed and verbally consented to the use of an ambient scribe for clinic note documentation during this visit. Plan I reviewed the patient's recent lab work. I confirmed that his hemoglobin is normal, and he no longer needs to take iron supplements, which he was pleased to hear. I informed him of his prediabetic status based on last year's A1c of 6.1 and this year's A1c of 6.0, a diagnosis he was not previously aware of. We discussed the importance of diet, focusing on reducing overall carbohydrate intake from sources like bread and pasta, not just sugars. We reviewed his cardiac history and medications, noting his cholesterol is well-controlled on atorvastatin. I explained the importance of annual echocardiograms for his reduced ejection fraction and requested that he have his cardiology records from [facility] sent to our office for continuity of care. I also discussed influenza and COVID-19 immunizations, which I recommend, but he declined at this time. I ordered follow-up lab work, including an iron panel and A1c, to be done the week before his six-month follow-up appointment, which will serve as his annual physical. Orders: Orders Complete Blood Count Auto Diff 6 Months Z00.00 - Encounter for general adult medical examination without abnormal findings Hemoglobin A1c 6 Months Z00.00 - Encounter for general adult medical examination without abnormal findings HIV Ab/Ag 6 Months Z00.00 - Encounter for general adult medical examination without abnormal findings Microalbumin, Random (w Creat) 6 Months Z00.00 - Encounter for general adult medical examination without abnormal findings Vitamin D 25-OH Total 6 Months Z00.00 - Encounter for general adult medical examination without abnormal findings IRON PROFILE 6 Months Z00.00 - Encounter for general adult medical examination without abnormal findings Comprehensive Met. Panel 6 Months Z00.00 - Encounter for general adult medical examination without abnormal findings Hepatitis A,B,C Profile 6 Months Z00.00 - Encounter for general adult medical examination without abnormal findings Lipid Panel 6 Months Z00.00 - Encounter for general adult medical examination without abnormal findings Syphilis Screen 6 Months Z00.00 - Encounter for general adult medical examination without abnormal findings TSH reflex Free T4 6 Months Z00.00 - Encounter for general adult medical examination without abnormal findings Patient Instructions: - You can stop taking your iron supplement, as your blood counts are normal. - Your A1c level indicates you have prediabetes. To help manage this, it is important to watch your diet by reducing not only sweets but also carbohydrates like rice, pasta, and bread. - Continue taking all your current heart and cholesterol medications as prescribed: Eliquis, sotalol, atorvastatin, Farxiga, spironolactone, and valsartan. - Please contact your customer supply chain analyst's office at [facility] and ask them to send your most recent medical records to our office. - We have ordered blood work for you. Please go to the lab one week before your next appointment to have it done. You do not need any paperwork. - We recommend getting the annual flu shot and COVID-19 vaccine to protect your health. - Schedule a follow-up appointment in six months for your annual physical.
[2025-07-04 10:02] VITALS: BP 120/80; PULSE 66; RESP 18; TEMP 36.6; O2SAT 99; BMI 29.6
== END 2025-07-04 10:26 | disposition home or self-care (01) ==
LOC: HO.HMCHD 09:54
PROVIDERS: PCP Student in an Organized Health Care Education/Training Program; Visit Provider Student in an Organized Health Care Education/Training Program
DX: R73.03 Prediabetes (principal); Z86.2 Personal history of diseases of the blood and blood-forming organs and certain disorders involving the immune mechanism; I48.0 Paroxysmal atrial fibrillation; I42.9 Cardiomyopathy, unspecified; E78.2 Mixed hyperlipidemia